=== PATIENT | male | born 1945 | race Caucasian/White ===

== ENCOUNTER 2018-09-04 12:41 | Inpatient (IN) | payer OTHER ==
[~2018-09-04] VITALS: Ht 185.4 cm; Wt 87.1 kg
[~2018-09-04 12:41] MED LIST: ALBU8HFA2 INH; ALBU90OI6 INH; ALLERCLEAR10 MG PO; ALPR.25 PO; AMLO5 PO; ASCO500 PO; ASPI325 PO; ASPI81CH PO; ASPI81EC PO; ATOR80 PO; Apriso0.375 GM PO; Artificial Tea1 EACH BOTHEYES; Aspir 8181 MG PO; BENZ10TG MC; BUTACE PO; CALCAVITD PO; CILO100; CILO100 PO; CLOP75 PO; CLOT10; COLE1 PO; COMBIVENT RESPIM4 GM INH; CYAN1000 PO; CYCL10 PO; DOC250 PO; DULO30 PO; DULO60 PO; EFFIENT10 MG PO; ENTRESTO 24 MG1 EACH PO; FENO160 PO; FINA5 PO; FISH1000 PO; FLUT.05NI; FURO20 PO; FURO40 PO; HIBICLENS120 ML EXT; HYDCOR2.5B TOP; HYDPAM25 PO; ISOMON20 PO; Ipratr-Albuterol3 ML INH; Isosorbide Mono30 MG PO; LAMO100 PO; LAMO25 PO; LEVFLO500 PO; LISI20 PO; LISI5 PO; LORA.5 PO; LORA1 PO; LORA10 PO; LORA10ER PO; LOSHYD PO; MAGGLU250 PO; MELA3 PO; MENTHOL; MESA250ER PO; METO50 PO; MOME220I IH; MOME220I INH; MULTI-DAY PLUS1 EAC1 PO; MULVITMIND PO; NEBI10 PO; NITR.4SL SL; Norvasc2.5 MG PO; OMEG1CAP30 PO; OMEP20ER PO; PENT400ER PO; PERIDEX15 ML MM; PIRO20 PO; Prilosec Otc20 MG PO; RANI150 PO; ROSU10TA PO; SALM50IP INH; SIME80CH PO; SINUS RINSE ST1 EACH NS; TERA5 PO; TIOT18 IH; TIOT18 INH; ZESTORETIC 20-121 EA PO; [UNRECOGNIZED DRUG - OTHER]
--- NOTE | 2018-09-04 15:40 | NUR ---
09/04/18 1539 Vianney Arnold PT. UPDATED THAT WAS FINISHING UP WITH HIS PREVIOUS PT. & WOULD BE IN TO SEE HIM IN A LITTLE BIT. PT. VERBALIZES BEING WARM ENOUGH. CALL LIGHT IS WITHIN REACH. PT. DIDN'T WANT HIS FRIEND CALL TO UPDATE HER.
--- NOTE | 2018-09-04 17:52 | NUR ---
09/04/18 1752 Vianney Arnold 1710 PT. WITH SCATTERED COARSE LUNGS SOUNDS WITH SCATTERED WHEEZES. CLEARS WITH COUGH. PT. STATES "SOB"SORT OF.171 PT. GIVEN ALBUTEROL NEBULIZER PER DR. SORIANO.
[2018-09-04 20:32] LABS: Creatine Kinase MB 7.8 ng/mL (0.0-3.6); Creatine Kinase MB Index 2.6 (0.0-4.0); Troponin I 0.026 ng/mL (0.000-0.040)
[2018-09-04 20:47] LABS: PCO2 Arterial 35.4 mmHg (35-45); PO2 Arterial 62.6 mmHg (80-100); pH Blood Arterial 7.45 (7.35-7.45)
[2018-09-04 22:03] LABS: BASOPHILS ABSOLUTE AUTO 0.04 K/mm3 (0.00-0.23); BASOPHILS PERCENT AUTO 1 % (0-2); EOSINOPHILS ABSOLUTE AUTO 0.06 K/mm3 (0.00-0.68); EOSINOPHILS PERCENT AUTO 1 % (0-6); Hematocrit 40.6 % (37.0-53.0); Hemoglobin 12.4 g/dL (13.5-17.5); IMMATURE GRAN ABSOLUTE AUTO 0.02 K/mm3 (0.00-0.10); IMMATURE GRAN PERCENT AUTO 0 % (0-1); LYMPHOCYTES ABSOLUTE AUTO 0.68 K/mm3 (0.84-5.20); LYMPHOCYTES PERCENT AUTO 9 % (21-46); MONOCYTES ABSOLUTE AUTO 0.44 K/mm3 (0.16-1.47); MONOCYTES PERCENT AUTO 6 % (4-13); Mean Corpuscular HGB 25.9 pg (26.0-34.0); Mean Corpuscular HGB Conc 30.5 g/dL (31.5-36.5); Mean Corpuscular Volume 85 fL (80-100); Mean Platelet Volume 8.9 fL (9.1-12.4); NEUTROPHILS ABSOLUTE AUTO 6.05 K/mm3 (1.96-9.15); NEUTROPHILS PERCENT AUTO 83 % (41-73); Platelet Count 189 K/mm3 (150-400); RDW Coefficient Variation 17.7 % (11.7-14.2); RDW Standard Deviation 54.4 fL (35.1-46.3); Red Blood Cell Count 4.79 M/mm3 (4.30-5.90); White Blood Cell Count 7.29 K/mm3 (4.00-11.30)
[2018-09-05 03:20] LABS: BASOPHILS ABSOLUTE AUTO 0.02 K/mm3 (0.00-0.23); BASOPHILS PERCENT AUTO 0 % (0-2); EOSINOPHILS ABSOLUTE AUTO 0.01 K/mm3 (0.00-0.68); EOSINOPHILS PERCENT AUTO 0 % (0-6); Hematocrit 37.5 % (37.0-53.0); Hemoglobin 11.6 g/dL (13.5-17.5); IMMATURE GRAN ABSOLUTE AUTO 0.04 K/mm3 (0.00-0.10); IMMATURE GRAN PERCENT AUTO 0 % (0-1); LYMPHOCYTES ABSOLUTE AUTO 0.56 K/mm3 (0.84-5.20); LYMPHOCYTES PERCENT AUTO 5 % (21-46); MONOCYTES ABSOLUTE AUTO 0.31 K/mm3 (0.16-1.47); MONOCYTES PERCENT AUTO 3 % (4-13); Mean Corpuscular HGB 25.5 pg (26.0-34.0); Mean Corpuscular HGB Conc 30.9 g/dL (31.5-36.5); Mean Platelet Volume 9.1 fL (9.1-12.4); NEUTROPHILS PERCENT AUTO 91 % (41-73); Platelet Count 177 K/mm3 (150-400); RDW Standard Deviation 53.3 fL (35.1-46.3); Red Blood Cell Count 4.55 M/mm3 (4.30-5.90); White Blood Cell Count 10.74 K/mm3 (4.00-11.30)
[2018-09-05 03:21] LABS: Mean Corpuscular Volume 82 fL (80-100)
[2018-09-05 03:39] LABS: Bilirubin, Total 1.2 mg/dL (0.1-1.0); Bun/Creatinine Ratio 12.9 (12.0-20.0); Calcium, Blood 8.2 mg/dL (8.5-10.1); Creatinine, Blood 1.32 mg/dL (0.60-1.20); Potassium, Blood 4.2 mmol/L (3.5-5.5)
--- NOTE | 2018-09-05 07:21 | NUR ---
ASSUMED CARE REPORT FROM CHRISTA BAEZA. PATIENT ASSISTED TO STAND TO VOID IN URINAL. 400 CC DARK YELLOW URINE. LUNG SOUNDS DIMINISHED. 2 L NC
--- NOTE | 2018-09-05 07:27 | NUR ---
1914: ADM TO ICU [age] YO MALE RESTLESS, TACHYPNIC. POSITIONED HIGH RIVERA'S, ABD DISTENDED, NOT FIRM. NSR, SPO2 88% ON 2L, INCREASED TO 4L NC. MAYO GLEZ AT BEDSIDE. INTERMIT PAROXYSMS TWISTING, SQUEEZING SHOULDER BLADES TOGETHER, C/O SEVERE PINS/NEEDLES MID THORACIC BACK, MOD INTERMIT ABD PAIN, R JAW PAIN. 12 LEAD EKG, PCXR, LACTIC ACID DONE. CT ABD COMPLETED BEFORE ADMIT. 1MG ATIVAN GIVEN IV WHEN ORDER OBTAINED, RESTLESSNESS, TACHYPNEA MOSTLY RELIEVED. 2129: PT ABLE TO CONVERSE, ADMISS COMPLETED. R HAND IV LEAKING, D/C. #20 R AC, FENTANYL 25 DANILO GIVEN, REMAINING PAIN SYMPT LARGELY RELIEVED. PRODUCTIVE COUGH, PINK TINGED, SPUTUM SPEC OBTAINED. ABX GIVEN. AGAIN C/O R JAW, MID BACK PAIN, BOTH INCREASED WHEN AREAS PALPATED, SECOND FENTANYL 25 DANILO GIVEN W/ STATED ADEQUATE IMPROVEMENT. 1MG ATIVAN FOR SLEEP. 199: SLEEPING AT INTERVALS, HOB FLAT, REPOSIT SELF SIDE TO SIDE FORE COMFORT.
--- NOTE | 2018-09-05 07:48 | NUR ---
0600: RESTING/ SLEEPING INTERVALS, ANXIETY REMAINS MARKEDLY REDUCED. RX FENTANYL 25 DANILO FOR C/O BACK PAIN, RETURNED TO SLEEP. ACTIVITY NICOLA MARKEDLY IMPROVED, SPO2 > 92%, O2 TITRATED TO 2L N/C.
--- NOTE | 2018-09-05 09:21 | NUR ---
CALLED DR. FUNES RE NPO STATUS. ORDER TO ADVANCE TO FULL LIQUID DIET.
--- NOTE | 2018-09-05 11:03 | NUR ---
ASSISTED PATIENT TO BSC. LIQUID STOOL WITH SOME BRIGHT RED BLOOD
--- NOTE | 2018-09-05 13:33 | NUR ---
MD VISIT DR. FUNES IN. ADVANCE DIET TOLERATED
--- NOTE | 2018-09-05 17:28 | NUR ---
ASSISTED PATIENT TO RECLINER FOR DINNER. INCREASED SHORTNESS OF BREATH. LEFT LUNGS DIMINSHED. CALLED DR. HUBER AND RECEIVED ORDER FOR LASIX 20 MG IV
--- NOTE | 2018-09-05 18:44 | NUR ---
PATIENT VOIDED 400 CC URINE AFTER LASIX GIVEN. IN CHAIR FOR DINNER. WILL BE MOVING TO ROOM 361 AFTER REPORT.
--- NOTE | 2018-09-05 19:23 | NUR ---
REPORT GIVEN TO CHRISTA GIL. PATIENT WILL MOVE TO 361
--- NOTE | 2018-09-06 06:40 | NUR ---
NOC SHIFT SUMMARY PT HAS BEEN PLEASANT AND COOPERATIVE WITH CARE THIS NIGHT, WAS TRANSFERED FROM ICU TO THIS FLOOR. WAS TREATED FOR ONGOING PAIN WITH FENTYNAL X1, ALSO TREATED FOR ANXIETY WITH ATIVAN X1. FOLLOWING MED ADMINISTRATION AND EVENING MED PASS PT SOON WENT TO SLEEP AND HAS SLEPT RESTFULY THROUGH THE NIGHT. CURRENTLY APPEARS IN NO ACUTE DISTRESS. VS HAVE BEEN STABLE. WILL CONTINUE TO MONITOR
--- NOTE | 2018-09-06 19:43 | NUR ---
SHIFT SUMMARY. PT DESATURATED ON RA, WAS NOT ABLE TO TITRATE OFF O2. PT HAD ONE EPISODE OF PAIN THAT WAS MANAGED WELL WITH ONE DOSE OF FENTANYL THIS AM. NO NEW CHANGES.
--- NOTE | 2018-09-07 04:23 | NUR ---
NOC SHIFT SUMMARY PT HAS BEEN PLEASANT AND COOPERATIVE WITH CARE THIS NIGHT. WAS TREATED ONCE FOR PAIN AND ONCE FOR ANXIETY. WAS ABLE TO SLEEP AND HAS SLEPT FOR MOST OF THE NIGHT. LAST VS AT 0417 WERE STABLE AND PT APPEARS IN NO ACUTE DISTRESS. CURRENTLY RESTING PEACEFULLY. WILL CONTINUE TO MONITOR.
[2018-09-07 05:09] LABS: BASOPHILS ABSOLUTE AUTO 0.02 K/mm3 (0.00-0.23); BASOPHILS PERCENT AUTO 0 % (0-2); EOSINOPHILS ABSOLUTE AUTO 0.03 K/mm3 (0.00-0.68); EOSINOPHILS PERCENT AUTO 0 % (0-6); Hematocrit 39.1 % (37.0-53.0); Hemoglobin 11.6 g/dL (13.5-17.5); IMMATURE GRAN ABSOLUTE AUTO 0.03 K/mm3 (0.00-0.10); IMMATURE GRAN PERCENT AUTO 0 % (0-1); LYMPHOCYTES ABSOLUTE AUTO 1.37 K/mm3 (0.84-5.20); LYMPHOCYTES PERCENT AUTO 17 % (21-46); MONOCYTES ABSOLUTE AUTO 0.57 K/mm3 (0.16-1.47); MONOCYTES PERCENT AUTO 7 % (4-13); Mean Corpuscular HGB 25.4 pg (26.0-34.0); Mean Corpuscular HGB Conc 29.7 g/dL (31.5-36.5); NEUTROPHILS ABSOLUTE AUTO 6.18 K/mm3 (1.96-9.15); NEUTROPHILS PERCENT AUTO 75 % (41-73); Platelet Count 198 K/mm3 (150-400); RDW Coefficient Variation 18.6 % (11.7-14.2); RDW Standard Deviation 57.3 fL (35.1-46.3); Red Blood Cell Count 4.57 M/mm3 (4.30-5.90)
[2018-09-07 05:22] LABS: Mean Corpuscular Volume 86 fL (80-100)
[2018-09-07 05:34] LABS: Bun/Creatinine Ratio 21.4 (12.0-20.0); Calcium, Blood 8.6 mg/dL (8.5-10.1); Creatinine, Blood 1.31 mg/dL (0.60-1.20)
--- NOTE | 2018-09-07 13:19 | NUR ---
Per admit trigger, I met with Mr. Gonzalez to discuss an Advacned Directive for him. He tells me he already [facility]. Asked RN to request [facility] fax this information.
--- NOTE | 2018-09-07 16:09 | NUR ---
SHIFT SUMMARY NO ACUTE CHANGES. PATIENT READY FOR DISCHARGE BUT CANNOT GET HOME DUE TO SNOW STORM. HOME 02 EVAL RECOMMENDS 4 L VIA HIFLOW CONTINUOUS OXYGEN. PATIENT REPORTS HE IS FEELING MUCH BETTER. PRN BREATHING TREATMENTS. CALL LIGHT IN REACH, WILL CONTINUE TO MONITOR.
--- NOTE | 2018-09-08 03:23 | NUR ---
SHIFT SUMMARY PT MEDICATED FOR C/O PAIN DURING SHIFT REPORT, THEN WENT TO SLEEP. ADMITTED FOR CP AFTER COLONOSCOPY. FOUND TO HAVE PNM. HOME O2 EVAL DONE. PT ON 4L HIGH FLOW NC. USING URINAL IN BED. NO C/O. PLEASANT AND CO-OP WITH CARE. CALL LT IN REACH.
--- NOTE | 2018-09-08 15:07 | NUR ---
SHIFT SUMMARY NO ACUTE CHANGES. PATIENT INDEPENDENT IN ROOM. PATIENT READY FOR DISCHARGE BUT HIS HOME DOES NOT HAVE POWER. POWER NEEDED FOR PATIENT'S OXYGEN CONCENTRATOR. HOME 02 EVAL DONE ON 09/07 RECOMMENDS 4L ON HIFLOW NC AT ALL TIMES. CALL LIGHT IN REACH, WILL CONTINUE TO MONITOR.
--- NOTE | 2018-09-09 06:03 | NUR ---
SHIFT SUMMARY NO ACUTE CHANGES TO PRESENT THIS SHIFT. PT CONTINUES TO IMPROVE AND JUST WAITING FOR POWER TO COME ON AT HIS HOUSE SO HE CAN BE DISCHARGED. REQUESTED ROBAXIN AND ATIVAN FOR SLEEP. GIVEN PER EMAR; HOWEVER, PT BECOME CONFUSED AND FORGETFUL AFTER ATIVAN, WANDERING OUT IN BIRD. ASSISTED BACK TO WHERE HE HAS RESTED WELL THE REMAINING SHIFT. INDEPENDANT IN . CALL LT IN REACH.
--- NOTE | 2018-09-09 16:32 | NUR ---
SHIFT SUMMARY NO CHANGES IN ASSESSMENT AT THIS TIME. VSS. PT IND IN ROOM. PT STATES NO NEEDS AT THIS TIME. PT WILL HOPEFULLY DC TOMORROW. WEATHER HAS CAUSED PROBLEMS IN DC HOME. WILL CONTINUE TO MONITOR UNTIL TURNOVER IS COMPLETE.
--- NOTE | 2018-09-10 04:57 | NUR ---
SHIFT SUMMARY NO ACUTE CHANGES TO PRESENT THIS SHIFT. PT RESTED QUIETLY IN BED. REPORTED CONTINUED IMPROVEMENT. ABLE TO AMBULATE IN HALLS DURING THE DAY. STILL WAITING FOR POWER TO COME ON AT HIS HOUSE, SO HE CAN GO HOME. USES URINAL AT BS AND ABLE TO GO INTO [facility]. CALL LT IN REACH.
--- NOTE | 2018-09-10 16:51 | NUR ---
SHIFT SUMMARY NO CHANGES IN ASSESSMENT AT THIS TIME. PT HOME STILL HAS NO POWER. DC HELD FOR THIS REASON. VSS. PT WORKED WITH PHYSICAL THERAPY THIS SHIFT. PT ENCOURAGED TO WALK WITH ASSISTANCE 3X A DAY AND TO GET UP IN CHAIR FOR MEALS. WILL CONTINUE TO MONITOR UNTIL TURNOVER IS COMPLETE.
--- NOTE | 2018-09-10 21:57 | NUR ---
ASSUMED CARE OF PT D/T PRIOR NURSE HAS NO COMPUTER ACCESS.
--- NOTE | 2018-09-11 03:35 | NUR ---
SHIFT SUMMARY: PT PLEASANT AND COOPERATIVE WITH CARE. AMBULATED IN BIRD USING FWW ONCE DURING SHIFT WITH FREQUENT PERIODS OF REST D/T SOB. PT RECOVERED FAIRLY WELL. NO COMPLAINTS OF PAIN OR NAUSEA. 0.5MG PO ATIVAN GIVEN FOR ANXIETY AND TO HELP PT REST. NO ACUTE CHANGES. WILL CONTINUE TO MONITOR AND PROVIDE CARE UNTIL SHIFT REPORT.
[2018-09-11] MEDS ORDERED: AMOCLA500 PO (14:38)
[2018-09-11] MEDS ORDERED: ONDA4ODT MM (14:39)
[2018-09-11] MEDS ORDERED: METCAR500 PO (14:39)
[2018-09-11] MEDS ORDERED: CULTURELLE1 EACH PO (14:39)
[2018-09-11] MEDS ORDERED: ACET325 PO (14:40)
[2018-09-11] MEDS ORDERED: AKWA Tears15 ML BOTHEYES (15:20)
[2018-09-11] MEDS ORDERED: PRED10 (15:21)
--- NOTE | 2018-09-11 15:35 | NUR ---
PT EXPLAINED THAT IF HE DOES NOT FEEL SAFE GOING HOME HE CAN CHECK HIMSELF INTO THE [place] THE [place]. TRANSPORT WAS ARRANGED TO PICK HIM UP AND TAKE HIM TO THE [facility] FOR PRESCRIPTIONS [facility] FOR PRESCRIPTIONS. PT REFUSED TO GO WITH THE TRANSPORT STATING "HE IS NOT READY & NEEDS MORE TIME" [facility] UNABLE TO WAIT ON PT AND HAD TO LEAVE. AT THIS POINT THE PT SAID HE WOULD GO, HOWEVER [facility] TRANSPORT WAS ALREADY GONE. PT STATED "THIS IS NOT RIGHT" & SAID HE WOULD WALK HIMSELF OUT. PT THEN PROCEEDED TO WALK WITH HIS CANE INTO THE LOBBY. PT REFUSED TO SIGN HIS DC PAPERWORK, BUT TOOK THE PACKED WITH HIM. PT THEN SAT IN THE 3RD FLOOR LOBBY. DC BRUSH OR BROOM CUTTERFAUSTINO NOTIFIED. NURSING CANE LOADER ALSO AWARE OF THE SITUATION.
--- NOTE | 2018-09-11 15:41 | NUR ---
PT DISCHARGED PT DISCHARGED IN STABLE CONDITION. [facility] ABLE TO COME BACK & TAKE PT TO [facility].
== END 2018-09-11 15:45 | disposition home or self-care (01) | DRG 193 ==
LOC: ORSCSDS 12:41 → ICUW 19:21 → ORSCSDS 19:24 → ICUW 19:24 → MEDS 09-05 19:40
PROVIDERS: Internal Medicine; Internal Medicine Gastroenterology; ADMIT Internal Medicine
PROC: 0DBL8ZX Excision of Transverse Colon, Via Natural or Artificial Opening Endoscopic, Diagnostic (ICD-10-PCS; 2018-09-04)
PROC: 0DBN8ZX Excision of Sigmoid Colon, Via Natural or Artificial Opening Endoscopic, Diagnostic (ICD-10-PCS; 2018-09-04)
PROC: 0DBP8ZX Excision of Rectum, Via Natural or Artificial Opening Endoscopic, Diagnostic (ICD-10-PCS; 2018-09-04)
PROC: 0DBM8ZX Excision of Descending Colon, Via Natural or Artificial Opening Endoscopic, Diagnostic (ICD-10-PCS; 2018-09-04)
PROC: 0DBK8ZX Excision of Ascending Colon, Via Natural or Artificial Opening Endoscopic, Diagnostic (ICD-10-PCS; principal; 2018-09-04 14:15)
DX: J18.1 Lobar pneumonia, unspecified organism (principal); J96.01 Acute respiratory failure with hypoxia; K51.90 Ulcerative colitis, unspecified, without complications; J44.1 Chronic obstructive pulmonary disease with (acute) exacerbation; J44.0 Chronic obstructive pulmonary disease with (acute) lower respiratory infection; I50.42 Chronic combined systolic (congestive) and diastolic (congestive) heart failure; Z86.010 Personal history of colon polyps; D63.1 Anemia in chronic kidney disease; N18.3 Chronic kidney disease, stage 3 (moderate); I25.10 Atherosclerotic heart disease of native coronary artery without angina pectoris; I25.5 Ischemic cardiomyopathy; Z95.1 Presence of aortocoronary bypass graft; Z95.5 Presence of coronary angioplasty implant and graft; Z87.891 Personal history of nicotine dependence; F41.9 Anxiety disorder, unspecified; K63.5 Polyp of colon; K64.8 Other hemorrhoids; K57.90 Diverticulosis of intestine, part unspecified, without perforation or abscess without bleeding
CPT/HCPCS: 36415; 36600; 71045; 74176; 80048; 80053; 82550; 82553; 82803; 83605; 84145; 84484; 85025; 87070; 87205; 88305; 93005; 93010; 94640; 94760; 94761; 97110; 97162; 97530; J0696; J1940; J1956; J2060; J2920; J3010; J7040; J7120

== ENCOUNTER 2020-05-27 03:48 | Emergency (ER) | payer OTHER, MEDICARE ==
[~2020-05-27] VITALS: Ht 185.4 cm; Wt 78.0 kg
[~2020-05-27 03:48] MED LIST changes: +ACET325 PO; +AKWA Tears15 ML BOTHEYES; +AMOCLA500 PO; +CULTURELLE1 EACH PO; +Daily Multiple1 EACH PO; -ENTRESTO 24 MG1 EACH PO; +ENTRESTO 49 MG1 EACH PO; +KRISTALOSE20 GM PO; +LASIX40 MG PO; -LORA10 PO; +MESALAMINE E0.375 GM PO; +METCAR500 PO; +MIRALAX17 GM PO; -MULTI-DAY PLUS1 EAC1 PO; +NITRO-DUR1 EAC1 TOP; +ONDA4ODT MM; +Oyster Shell C500 MG PO; +PRED10; +Triamcinolone A15 G2 EXT; +Vitamin D2000 UNIT PO; +ZOSTAVAX V19400 UNIT SQ; +Zantac150 MG PO
[2020-05-27] MEDS ORDERED: CARB10OTL BOTHEARS (04:59)
[2020-05-27] MEDS ORDERED: TUMS500 MG PO (04:59)
[2020-05-27] MEDS ORDERED: Vitamin D2000 UNIT PO (05:00)
[2020-05-27] MEDS ORDERED: Plavix75 MG PO (05:00)
[2020-05-27] MEDS ORDERED: DULO60 PO (05:01)
[2020-05-27] MEDS ORDERED: ARTIFICIAL TEA1 EAC1 BOTHEYES (05:01)
[2020-05-27] MEDS ORDERED: FAMO20 PO (05:02)
[2020-05-27] MEDS ORDERED: LAMO100 PO (05:02)
[2020-05-27] MEDS ORDERED: MESA250ER PO (05:04)
[2020-05-27] MEDS ORDERED: MULTIVITAMINS1 EAC3 PO (05:05)
[2020-05-27] MEDS ORDERED: NEBI10 PO (05:05)
[2020-05-27] MEDS ORDERED: NITR.4SL SL (05:06)
== END 2020-05-27 06:20 | disposition home or self-care (01) ==
LOC: ER 03:48
DX: M54.5 Low back pain (principal); I25.2 Old myocardial infarction; J44.9 Chronic obstructive pulmonary disease, unspecified; F43.10 Post-traumatic stress disorder, unspecified; Z95.1 Presence of aortocoronary bypass graft; Z95.5 Presence of coronary angioplasty implant and graft; Z87.891 Personal history of nicotine dependence; Z79.02 Long term (current) use of antithrombotics/antiplatelets; Z79.899 Other long term (current) drug therapy; Z88.8 Allergy status to other drugs, medicaments and biological substances; Z88.5 Allergy status to narcotic agent
CPT/HCPCS: 72100; 99283-25; A9270

== ENCOUNTER 2020-06-08 20:39 | Inpatient (IN) | payer OTHER, MEDICARE ==
[~2020-06-08] VITALS: Ht 188 cm; Wt 78.9 kg
[~2020-06-08 20:39] MED LIST changes: +ARTIFICIAL TEA1 EAC1 BOTHEYES; +CARB10OTL BOTHEARS; +FAMO20 PO; +MULVITA PO; +Plavix75 MG PO; +TUMS500 MG PO
[2020-06-08 21:14] LABS: BASOPHILS ABSOLUTE AUTO 0.12 K/mm3 (0.00-0.23); BASOPHILS PERCENT AUTO 1 % (0-2); EOSINOPHILS ABSOLUTE AUTO 0.17 K/mm3 (0.00-0.68); EOSINOPHILS PERCENT AUTO 2 % (0-6); Hemoglobin 12.1 g/dL (13.5-17.5); IMMATURE GRAN ABSOLUTE AUTO 0.04 K/mm3 (0.00-0.10); IMMATURE GRAN PERCENT AUTO 0 % (0-1); LYMPHOCYTES ABSOLUTE AUTO 2.04 K/mm3 (0.84-5.20); LYMPHOCYTES PERCENT AUTO 21 % (21-46); MONOCYTES PERCENT AUTO 8 % (4-13); Mean Corpuscular HGB 22.3 pg (26.0-34.0); Mean Corpuscular HGB Conc 28.1 g/dL (31.5-36.5); Mean Corpuscular Volume 79 fL (80-100); Mean Platelet Volume 9.4 fL (9.1-12.4); NEUTROPHILS ABSOLUTE AUTO 6.68 K/mm3 (1.96-9.15); NEUTROPHILS PERCENT AUTO 68 % (41-73); Platelet Count 316 K/mm3 (150-400); RDW Coefficient Variation 16.6 % (11.7-14.2); RDW Standard Deviation 47.2 fL (35.1-46.3); Red Blood Cell Count 5.42 M/mm3 (4.30-5.90); White Blood Cell Count 9.85 K/mm3 (4.00-11.30)
[2020-06-08 21:28] LABS: Albumin, Blood 3.4 g/dL (3.4-5.0); Bilirubin, Total 1.6 mg/dL (0.1-1.0); Bun/Creatinine Ratio 12.4 (12.0-20.0); Calcium, Blood 8.8 mg/dL (8.5-10.1); Creatinine, Blood 1.77 mg/dL (0.60-1.20); Globulin, Blood 3.4 g/dL (2.2-4.0); Potassium, Blood 4.8 mmol/L (3.5-5.5); Prolactin 5.3 ng/mL (2.5-17.4); Total Protein, Blood 6.8 g/dL (6.4-8.2); Troponin I 0.061 ng/mL (0.000-0.040)
[2020-06-08 21:29] LABS: International Normalized Ratio 1.38; Prothrombin Time Results 14.5 Sec (9.7-11.5)
[2020-06-08 21:39] LABS: Source, Urine Catheter
[2020-06-08 21:43] LABS: Blood, Urine 1+ (Neg); Glucose Qualitative, Urine Neg (Neg); Ketones, Urine 2+ (Neg); Leukocyte Esterase, Urine 1+ (Neg); Nitrite, Urine Pos (Neg); Protein, Urine 3+ (Neg); Specific Gravity, Urine 1.025 (1.003-1.022); Urobilinogen, Urine 2+ (Normal)
[2020-06-08 21:45] LABS: Appearance, Urine Hazy (Clear); Bilirubin, Urine 2+ (Neg); Color, Urine Amber (P-Yellow)
[2020-06-08 21:54] LABS: U Amphetamine Screen Not Detected; U Barbituate Screen Not Detected; U Benzodiazapine Screen Not Detected; U Buprenorphine Screen Not Detected; U Cannabinoids Screen Not Detected; U Cocaine Screen Not Detected; U Methadone Screen Not Detected; U Methamphetamine Screen DETECTED; U Opiates Screen Not Detected; U Oxycodone Screen Not Detected; U Phencyclidine Screen Not Detected; U Propoxyphene Screen Not Detected
[2020-06-08 21:57] LABS: Amorphous Heavy (0-Heavy); Bacteria Few /hpf; Red Blood Cells, Urine Not Seen /hpf (0-2); Squamous Epithelial Cells Not Seen /hpf (Few); White Blood Cells, Urine Rare /hpf (0-5)
[2020-06-08 22:11] LABS: Creatine Kinase MB 21.5 ng/mL (0.0-3.6); Creatine Kinase MB Index 2.9 (0.0-4.0)
--- NOTE | 2020-06-09 01:00 | NUR ---
PT ARRIVED FROM ER VIA STRETCHER; PT CONFUSED; ABLE TO STATE BIRTHDATE, DOES NOT KNOW WHAT MONTH IT IS AND STATES [facility]; MAI IN PLACE, PATENT & DRAINING; VSS; DENIES CHEST PAIN; ORIENTED TO ROOM AND CALL LIGHT; BED IN LOWEST POSITION; BED ALARM ON FOR SAFETY;
[2020-06-09 03:05] LABS: Adenovirus Not Detected (NOT DETECT); Bordetella pertussis Not Detected (NOT DETECT); Chlamydophila pneumoniae Not Detected (NOT DETECT); Coronavirus 229E Not Detected (NOT DETECT); Coronavirus HKU1 Not Detected (NOT DETECT); Coronavirus NL63 Not Detected (NOT DETECT); Coronavirus OC43 Not Detected (NOT DETECT); Human Metapneumovirus Not Detected (NOT DETECT); Human Rhinovirus/Enterovirus Not Detected (NOT DETECT); Influenza A/2009-H1 Not Detected (NOT DETECT); Influenza A/H1 Not Detected (NOT DETECT); Influenza A/H3 Not Detected (NOT DETECT); Influenza B Not Detected (NOT DETECT); Mycoplasma pneumoniae Not Detected (NOT DETECT); Parainfluenza Virus 1 Not Detected (NOT DETECT); Parainfluenza Virus 2 Not Detected (NOT DETECT); Parainfluenza Virus 3 Not Detected (NOT DETECT); Parainfluenza Virus 4 Not Detected (NOT DETECT); Respiratory Syncytial Virus Not Detected (NOT DETECT); SARS-Cov-2 (COVID-19), BioFire Not Detected (NOT DETECT)
--- NOTE | 2020-06-09 03:12 | NUR ---
UPDATE PT AGGITATED AND PULLED MAI APART AND IV; IN BATHROOM REFUSING TO COME OUT; ADMINISTRATIVE SALES ASSISTANT IN ROOM AND SECURITY; DR. ROWE NOTIFIED; NEW ORDERS GIVEN FOR OSORIO AND HOLD; REFER TO EMAR
--- NOTE | 2020-06-09 03:54 | NUR ---
UPDATE TO SEE PT; INITIATED 2MD HOLD; 3MG HALDOL IV ADMINISTERED; PT EDUCATED ON MD HOLD AND CIVIL RIGHTS READ TO PT; HE REFUSED TO SIGN PAPERS, WITNESSED BY SECURITY AND CHRISTA GARCIA; PT MOVED TO PCU ROOM 8, CAMERA ON AND CONFIRMED W/ CENTRAL MONITORING; BALLOON FROM MAI REMOVED BY JOSERN; PT REFUSING ALL CARE AND INTERVENTIONS; CALL LIGHT IN REACH; BED IN LOWEST POSITION; WILL CONTINUE TO MONITOR CLOSELY.
[2020-06-09 05:05] LABS: BASOPHILS ABSOLUTE AUTO 0.04 K/mm3 (0.00-0.23); BASOPHILS PERCENT AUTO 1 % (0-2); EOSINOPHILS PERCENT AUTO 0 % (0-6); Hematocrit 38.5 % (37.0-53.0); Hemoglobin 11.3 g/dL (13.5-17.5); IMMATURE GRAN ABSOLUTE AUTO 0.03 K/mm3 (0.00-0.10); IMMATURE GRAN PERCENT AUTO 1 % (0-1); LYMPHOCYTES ABSOLUTE AUTO 1.17 K/mm3 (0.84-5.20); LYMPHOCYTES PERCENT AUTO 18 % (21-46); MONOCYTES ABSOLUTE AUTO 0.57 K/mm3 (0.16-1.47); MONOCYTES PERCENT AUTO 9 % (4-13); Mean Corpuscular HGB Conc 29.4 g/dL (31.5-36.5); Mean Corpuscular Volume 78 fL (80-100); Mean Platelet Volume 8.9 fL (9.1-12.4); NEUTROPHILS ABSOLUTE AUTO 4.85 K/mm3 (1.96-9.15); NEUTROPHILS PERCENT AUTO 73 % (41-73); Platelet Count 215 K/mm3 (150-400); RDW Coefficient Variation 16.6 % (11.7-14.2); RDW Standard Deviation 46.6 fL (35.1-46.3); Red Blood Cell Count 4.91 M/mm3 (4.30-5.90); White Blood Cell Count 6.66 K/mm3 (4.00-11.30)
[2020-06-09 05:49] LABS: Albumin, Blood 3.1 g/dL (3.4-5.0); Bilirubin, Total 1.5 mg/dL (0.1-1.0); Bun/Creatinine Ratio 14.1 (12.0-20.0); Calcium, Blood 8.5 mg/dL (8.5-10.1); Creatinine, Blood 1.92 mg/dL (0.60-1.20); Globulin, Blood 3.2 g/dL (2.2-4.0); Potassium, Blood 4.4 mmol/L (3.5-5.5); Total Protein, Blood 6.3 g/dL (6.4-8.2)
[2020-06-09 06:03] LABS: Troponin I 4.89 ng/mL (0.000-0.040)
[2020-06-09 06:18] LABS: Creatine Kinase MB 36.8 ng/mL (0.0-3.6); Creatine Kinase MB Index 2.2 (0.0-4.0)
--- NOTE | 2020-06-09 06:24 | NUR ---
SHIFT SUMMARY PT ALERT; REFUSING SOME CARE; REFUSED VITALS; ALLOWED LAB TO DRAW AM LABS; WENT BY WHEELCHAIR TO CT; CAMERA ON; TELE IN PLACE, NSR W/ HR 60'S; PT CURRENTLY RESTING QUIETLY IN BED; CALL LIGHT IN REACH; BED IN LOWEST POSITION; WILL CONTINUE TO MONITOR CLOSELY UNTIL HAND OFF TO DAY SHIFT RN.
--- NOTE | 2020-06-09 08:32 | NUR ---
NOTED IV SITE ON RIGHT FOREARM LOOKS WNL; HOWEVER, THERE WAS TIGHT COBAN PROXIMAL TO THE AREA WITH SWELLING PROXIMAL TO THAT.
--- NOTE | 2020-06-09 10:58 | NUR ---
ASSUMED CARE DURING MORNING REPORT FROM NOC RN PT WAS IN THE BATHROOM DURING SHIFT CHANGE, RETURNED TO BED AND AGREED TO LET RN COMPLETE VS. IV IN RIGHT FOREARM HAD SOME SWELLING ABOVE THE SITE, THERE WAS ALSO TIGHT COBAN FROM RECENT LAB DRAWS. THE COBAN WAS REMOVED AND WE ALLOWED TIME FOR THE SWELLING TO SETTLE. WHEN CHECKING THE PATENCY OF THE IV, IT WAS INFILTRATED. IV WAS REMOVED, 3 ATTEMPTS WITH ULTRASOUND WERE ATTEMPTED TO REPLACE THE IV FROM MULTIPLE RN'S KO, AND GL. GBL WAS ABLE TO GET AN IV STARTED IN THE RIGHT FOREARM HIGHER THAN THE LAST IV SITE, PT TOLERATED WELL. PT COOPERATED WITH CARE, ALLOWING ASSESSMENTS AND MEDICATIONS BUT REFUSED WORKING WITH PT AND OT THIS MORNING. VS STABLE, NSR, CLEAR LUNG SOUNDS, PT RESTING AT THIS TIME
[2020-06-09 14:06] LABS: Troponin I 5.51 ng/mL (0.000-0.040)
[2020-06-09 14:35] LABS: Creatine Kinase MB 36.4 ng/mL (0.0-3.6); Creatine Kinase MB Index 1.7 (0.0-4.0)
--- NOTE | 2020-06-09 14:38 | NUR ---
Echocardiogram using 0.50ml of Definity contrast performed.
[2020-06-09 16:19] LABS: International Normalized Ratio 1.43
--- NOTE | 2020-06-09 17:58 | NUR ---
SHIFT SUMMARY PT RESTED MOST OF THE DAY. HE WAS COOPERATIVE WITH CARE, ALLOWING THE IV TO BE REPLACED WHEN HIS WAS INFILTRATED. HE WORKED A LITTLE WITH PHYSICAL THERAPY, AGREED TO THE ECHO. TROP HAS TRENDED UPWARD, SOME LATERAL ISCHEMIA DETECTED ON THE EKG BUT NO ST ELEVATION, PT REPORTED SOME MILD CHEST PAIN FOLLOWING THE EKG BUT OVERALL HAS BEEN SORE AND TIRED. PRN TYLENOL WAS ORDERED FOR HIS SORENESS. HEPARIN DRIP AND 0.45% NS ORDERED FOR THE INCREASED TROPONIN, HEP RUNNING @ 13 U/KG/HR. PT HAS A LARGE HEMATOMA ON THE RIGHT ELBOW ALONG WITH SCATTERED BRUISING FROM HIS FALL AT HOME. PT ALSO HAS REPORTED SOME SORENESS IN HIS THROAT, POSSIBLY FROM YELLING WHILE DOWN AT HOME. PT RESTING IN HIS ROOM AT THIS TIME
--- NOTE | 2020-06-09 19:03 | NUR ---
Went into room to answer beeping IV machine. While verifying IV site WNL, the pt was grimacing, clenching his fists, and said that he was having chest pain, holding his hand over his left chest. Cannot rate his pain level numerically due to his altered mental status, which has been unchanged throughout the shift today. DR. Mack was called, and new orders received. 12 lead EKG was done, without noticable changes from previous EKG today. Heparin gtt continues to infuse. Pt was given 2 doses of sublingual NTG which gave him some relief. call to cardiology answering service to verify the receipt by the poiser of the consultation request. It was given to Dr. Meadows, who had told them that he was nearby PCU. Pt's blood pressure is stable, and his SPo2 is 93-95% on room air.
--- NOTE | 2020-06-09 19:10 | NUR ---
Spoke with Dr. Meadows, and he is heading in to see the patient now.
--- NOTE | 2020-06-09 22:00 | NUR ---
UPDATE VERIFIED THAT CAMERA WAS ON IN ROOM.
[2020-06-10 01:10] LABS: BASOPHILS ABSOLUTE AUTO 0.09 K/mm3 (0.00-0.23); BASOPHILS PERCENT AUTO 1 % (0-2); EOSINOPHILS PERCENT AUTO 1 % (0-6); Hematocrit 37.1 % (37.0-53.0); IMMATURE GRAN ABSOLUTE AUTO 0.02 K/mm3 (0.00-0.10); IMMATURE GRAN PERCENT AUTO 0 % (0-1); LYMPHOCYTES ABSOLUTE AUTO 2.31 K/mm3 (0.84-5.20); LYMPHOCYTES PERCENT AUTO 28 % (21-46); MONOCYTES ABSOLUTE AUTO 0.89 K/mm3 (0.16-1.47); MONOCYTES PERCENT AUTO 11 % (4-13); Mean Corpuscular HGB 22.8 pg (26.0-34.0); Mean Corpuscular HGB Conc 29.6 g/dL (31.5-36.5); Mean Corpuscular Volume 77 fL (80-100); Mean Platelet Volume 9.5 fL (9.1-12.4); NEUTROPHILS ABSOLUTE AUTO 4.94 K/mm3 (1.96-9.15); NEUTROPHILS PERCENT AUTO 59 % (41-73); Platelet Count 222 K/mm3 (150-400); RDW Coefficient Variation 16.7 % (11.7-14.2); RDW Standard Deviation 45.8 fL (35.1-46.3); Red Blood Cell Count 4.83 M/mm3 (4.30-5.90); White Blood Cell Count 8.35 K/mm3 (4.00-11.30)
[2020-06-10 01:42] LABS: Albumin, Blood 2.9 g/dL (3.4-5.0); Albumin/Globulin Ratio 1.1 (0.8-1.8); Bilirubin, Total 1.5 mg/dL (0.1-1.0); Bun/Creatinine Ratio 18.9 (12.0-20.0); Calcium, Blood 8.1 mg/dL (8.5-10.1); Creatine Kinase MB 41.1 ng/mL (0.0-3.6); Creatinine, Blood 1.48 mg/dL (0.60-1.20); Globulin, Blood 2.7 g/dL (2.2-4.0); Potassium, Blood 3.9 mmol/L (3.5-5.5); Total Protein, Blood 5.6 g/dL (6.4-8.2)
[2020-06-10 01:44] LABS: Creatine Kinase MB Index 1.8 (0.0-4.0); Troponin I 4.17 ng/mL (0.000-0.040)
--- NOTE | 2020-06-10 02:15 | NUR ---
CHEST PAIN PATIENT'S CHEST PAIN AT SHIFT CHANGE HAD RESOLVED, HOWEVER, PATIENT JUST STARTED COMPLAINING OF SEVERE CHEST PAIN AGAIN. PATIENT BECAME VERY ANXIOUS AND STARTED CLUTCHING HIS CHEST STATING "I HURT!" PATIENT MEDICATED PER EMAR. AFTER THREE SQ NITRO PATIENT RELAXED AND STATED THAT HIS CHEST ONLY HURT WHEN HE PRESSED ON IT. 2L O2 PROVIDED FOR COMFORT. PATIENT SETTLED BACK TO BED AND APPEARES TO BE RESTING.
--- NOTE | 2020-06-10 02:44 | NUR ---
UPDATE DR ROWE NOTIFIED OF BNP RESULTS. ORDERS RECIEVED.
--- NOTE | 2020-06-10 07:53 | NUR ---
SHIFT SUMMARY PATIENT HAD NO FURTHER COMPLAINTS OF CHEST PAIN/DISCOMFORT THROUGHOUT THE NIGHT. HOWEVER, PATIENT DID HAVE GENERAL PAIN AND RIB PAIN. PATIENT REPORTED THAT THE RIB PAIN WAS NOT THE SAME PAIN HE HAD EARLIER IN HIS CHEST. PATIENT APPEARS TO BE ABLE TO CARRY ON A BETTER CONVERSATION WITH STAFF THIS MORNING THAN LAST NIGHT. PATIENT APPEARED TO SLEEP WELL ON AND OFF THROUGHOUT THE NIGHT. VITAL SIGNS CHARTED. REPORT GIVEN TO ONCOMING RN.
--- NOTE | 2020-06-10 08:00 | NUR ---
PT SITTING ON THE SIDE OF THE BED A/OX3, PLEASANT AND COOPERATIVE WITH CARE, FOLLOWS COMMANDS WELL, DENIES COMPLAINTS, BUT THEN WILL PUT HIS HAND ON HIS LEFT FLAND AND STATES HES SORE THERE, LUNGS ARE CLEAR IN UPPER FISHER, DIM IN BASES, RESP EVEN AND UNLABORED, NO COUGH NOTED, HRR, TELE IN PLACE RUNNING SR PER MONITOR, SEE STRIP, NO EDEMA NOTED, PPP+2, CAP REFILL <3SEC, VS STABLE, AFEBRILE, IV SITES ARE CLEAR AND PATENT, BTX4, ABD FLAT SOFT NONTENDER, VOIDS WITHOUT DIFF VIA URINAL, SKIN HAS MULTIPLE BRUISINGS, HEMATOMA TO LEFT ELBOW, LEFT FA HAS SOME SWELLING, NO OPEN AREAS NOTED, GAVINO FRANCO, CALL LIGHT IN REACH, BED ALARM ACTIVATED.
--- NOTE | 2020-06-10 13:09 | NUR ---
pt medicated for pain, turned up heperin per orders, warm blanket given for comfort, v.s. stable. no further changes or needs. sitting up in a chair, no further needs. call light in reach.
--- NOTE | 2020-06-10 13:26 | NUR ---
PAIN MANAGEMENT PT REPORTING PERSISTENT BACKPAIN. MEDICATED EARLIER WITH FENTANYL, BUT NOT ABLE TO GIVE FURTHER DOSE AT THIS TIME DUE TO ORDER TIME FRAME. SPOKE WITH DR. ZAYAS, STATES SHE WILL PUT REVIEW CHART AND PLACE ORDERS APPROPRIATE.
--- NOTE | 2020-06-10 14:05 | NUR ---
CARE ASSUMED REPORT RECEIVED, CARE ASSUMED AT 1300 FROM CHRISTA ANDRES. UPON ASSUMING CARE, PT WRITHING IN BED, REPORTS UNBEARABLE BACK PAIN. SEE NOTE REGARDING PAIN MANAGEMENT. MEDICATED WITH ULTRAM. PROVIDED WITH WARM PAD FOR BACK. REPOSITIONED. OTHERWISE, PT DENIES NEEDS. VITALS STABLE. SEE SHIFT ASSESSMENT.
--- NOTE | 2020-06-10 15:50 | NUR ---
CHEST PAIN PT COMPLAINING OF CHEST PAIN/PRESSURE 10/10 AND SHORTNESS OF BREATH. GRASPING LEFT CHEST AND MOANING. VITAL SIGNS STABLE, NO CHANGES NOTED ON TELEMETRY. MEDICATED X3 WITH NITRO, VITALS CONTINUE TO BE STABLE, CHEST PAIN PERSISTS AT 10/10. RESPIRATORY RATE IMPROVED. MEDICATED WITH FENTANYL. SINCE THEN, PT RESTING QUIETLY. WHEN WOKEN UP FOR REASSESSMENT, PT CALM, SMILING. WHEN ASKED ABOUT PAIN, HE SAYS, "I DON'T KNOW LET ME CHECK." AND THEN SITS UP AND REPORTS, "IT STILL REALLY HURTS WHEN I MOVE." NO NONVERBAL SIGNS OF PAIN AT REST. WILL CONTINUE TO CLOSELY MONITOR.
--- NOTE | 2020-06-10 15:54 | NUR ---
PALLIATIVE CARE/CODE STATUS PALLIATIVE CARE CONSULT INITIATED DUE TO PATIENT'S PERSISTENT SYMPTOMS AND DISEASE PROCESS. ELIUD STARR, PALLIATIVE CARE RN NOTIFIED THIS RN THAT PT HAS POLST THAT STATES DNR. I SPOKE WITH THE PATIENT REGARDING HIS POLST. PT STATES INITIALLY THAT HE IS UNSURE OF DNR STATUS. WHEN EXPLAINED THE PROCESS OF CPR AND INTUBATION, PT MAKES THE DECISION TO BE A DNR HE SAYS, "THAT'S PROBABLY JUST PROLONGING." PT CALM, COOPERATIVE. ORIENTED TO LOCATION, YEAR, SELF, FAMILY (WE DISCUSSED HIS SISTER MARCO), AND SITUATION (STATES "I GOT BEAT UP PRETTY BAD). EXPRESSING NEEDS CLARLY. INFORMED ELIUD IN PALLIATVE CARE OF THIS DISCUSSION. NEW ORDER PLACED PER DR. ZAYAS AND ELIUD FOR DNR STATUS.
--- NOTE | 2020-06-10 18:41 | NUR ---
SUMMARY SINCE PREVIOUS NOTES, NO ACUTE CHANGE. VITALS STABLE. PT CONTINUES TO HAVE DYSPNEA WITH EXERTION, BUT IS CALM AT REST. ATE SOME OF HIS DINNER, BACK TO BED, AND RESTING QUIETLY. EXPRESSES CONCERN ABOUT DYSPNEA WITH TRANSFER BUT RECOVERS WITHIN A FEW MINUTES. CYLINDER WORKER UNCHANGED. PT CONTINUES TO BE ORIENTED, BUT FORGETFUL. TALKS ABOUT CALLING HIS SISTER BUT STATES HE ISN'T READY YET. HEPARIN GTT INCREASED AND BOLUS GIVEN PER PHARMACY ORDERS, SEE EMAR.
[2020-06-11 01:18] LABS: BASOPHILS ABSOLUTE AUTO 0.04 K/mm3 (0.00-0.23); BASOPHILS PERCENT AUTO 1 % (0-2); EOSINOPHILS PERCENT AUTO 1 % (0-6); Hematocrit 36.8 % (37.0-53.0); Hemoglobin 10.9 g/dL (13.5-17.5); IMMATURE GRAN ABSOLUTE AUTO 0.03 K/mm3 (0.00-0.10); IMMATURE GRAN PERCENT AUTO 0 % (0-1); LYMPHOCYTES PERCENT AUTO 19 % (21-46); MONOCYTES ABSOLUTE AUTO 0.81 K/mm3 (0.16-1.47); MONOCYTES PERCENT AUTO 10 % (4-13); Mean Corpuscular HGB 22.5 pg (26.0-34.0); Mean Corpuscular HGB Conc 29.6 g/dL (31.5-36.5); Mean Corpuscular Volume 76 fL (80-100); Mean Platelet Volume 9.3 fL (9.1-12.4); NEUTROPHILS ABSOLUTE AUTO 5.81 K/mm3 (1.96-9.15); NEUTROPHILS PERCENT AUTO 69 % (41-73); Platelet Count 209 K/mm3 (150-400); RDW Coefficient Variation 16.5 % (11.7-14.2); RDW Standard Deviation 44.8 fL (35.1-46.3); Red Blood Cell Count 4.84 M/mm3 (4.30-5.90); White Blood Cell Count 8.39 K/mm3 (4.00-11.30)
[2020-06-11 01:48] LABS: Alanine Aminotransfer (ALT/SGP 90 U/L (12-78); Albumin, Blood 2.9 g/dL (3.4-5.0); Alk Phos 138 U/L (50-136); Anion Gap 8 mmol/L (6-16); Aspartate Aminotrans (AST/SGOT 133 U/L (12-37); Bilirubin, Total 1.3 mg/dL (0.1-1.0); Blood Urea Nitrogen 26 mg/dL (8-24); CO2, Blood 24 mmol/L (21-32); CPK Creatine Kinase 1304 U/L (39-308); Calcium, Blood 7.9 mg/dL (8.5-10.1); Chloride, Blood 112 mmol/L (98-108); Creatine Kinase MB 14.1 ng/mL (0.0-3.6); Creatine Kinase MB Index 1.1 (0.0-4.0); Creatinine, Blood 1.24 mg/dL (0.60-1.20); Globulin, Blood 2.9 g/dL (2.2-4.0); Glomerular Filtration Rate >60 (60-); Glucose, Blood 107 mg/dL (70-99); Potassium, Blood 3.7 mmol/L (3.5-5.5); Sodium, Blood 144 mmol/L (136-145); Total Protein, Blood 5.8 g/dL (6.4-8.2)
--- NOTE | 2020-06-11 04:30 | NUR ---
UPDATE VERIFIED WITH PHARMACIST GISELA VERNON THAT HEPARIN GTT SHOULD CONTINUE TO RUN AT CURRENT RATE EVEN AFTER LAST APTT RESULT.
--- NOTE | 2020-06-11 07:30 | NUR ---
DR. ROXANNE OLIVEIRA, FOOD SERVICE COUNTER CLERK TO BEDSIDE TO DISCUSS PLAN OF CARE WITH PATIENT. PER DR. OLIVEIRA, ADDING A LONG ACTING NITRATE TO PLAN FOR CHEST PAIN MANAGEMENT.
--- NOTE | 2020-06-11 07:39 | NUR ---
SHIFT SUMMARY PATIENT PLEASENT AND COOPERATIVE THROUGHOUT THE NIGHT. PATIENT MEDICATED FOR BACK PAIN PER EMAR. PATIENT HAS SEVERAL EPISODES OF CHEST PAIN THAT OCCURED WHILE PATIENT WAS STANDING AT THE BEDSIDE TO VOID THAT APPEARED TO RESOLVE WITH REST. PATIENT HAD ONE EPISODE OF CHEST PAIN REQUIRED NITRO TO RESOLVE. PATIENT APPEARED TO NAP ON AND OFF THROUGHOUT THE NIGHT. HEPARIN GTT RUNNING PER EMAR. VITAL SIGNS CHARTED. REPORT GIVEN TO ONCOMING RN.
[2020-06-11 11:28] LABS: International Normalized Ratio 1.33
--- NOTE | 2020-06-11 12:30 | NUR ---
CARE ASSUMED REPORT RECEIVED, CARE ASSUMED AT 0700 FROM CHRISTA ROCHE. SINCE ASSUMING CARE, PT CONTINUES TO HAVE INTERMITTENT PAIN, BUT RESOLVES MOSTLY WITH REST. MEDICATED ONCE WITH FENTANYL AND ULTRAM. LONG ACTING NITRATE ALSO ADDED TO PT'S MEDICATION REGIME. PT CONTINUES TO BE ORIENTED TODAY, BUT FORGETFUL. BED ALARM IN PLACE FOR SAFETY. SEE ASSESSMENTS AND VITALS.
--- NOTE | 2020-06-11 17:59 | NUR ---
SUMMARY NO ACUTE CHANGING THROUGHOUT SHIFT. PT CONTINUES TO HAVE INTERMITTENT CHEST PAIN, THAT HE PRIMARILY RESOLVES WITH REST. HE HAS BEEN MEDICATED TWICE WITH FENTANYL AND ULTRAM FOR BACK AND CHEST PAIN WHICH HAS BEEN EFFECTIVE. VITALS CONTINUE TO BE STABLE. NO CHANGES NOTED ON PHYSICIAN PRACTICE MARKET MANAGER. PT REPOSITIONS SELF FREQUETLY IN BED, INDEPENDENT USING URINAL. CALLING APPROPRIATELY FOR NEEDS.
--- NOTE | 2020-06-12 06:07 | NUR ---
SHIFT SUMMARY PATIENT PLEASENT AND COOPERATIVE THROUGHOUT THE NIGHT. PATIENT CONTINUES TO HAVE CHEST PAIN WITH ACTIVITY THAT RESOLVES WITH REST. PATIENT MEDICATED FOR PAIN PER EMAR. PATIENT USING A HEATING PAD FOR BACK PAIN RELIEF. PATIENT APPEARS TO BE ALBE TO TURN SELF IN BED. PATIENT APPEARED TO SLEEP WELL THROUGHOUT THE SECOND HALF OF THE NIGHT. CAMERA ON IN ROOM. VITAL SIGNS CHARTED. WILL CONTINUE TO MONITOR PATIENT AND REPORT TO ONCOMING RN.
--- NOTE | 2020-06-12 08:10 | NUR ---
pt sitting on side of the bed awake, alert oriented to self, place and date. follows directions and is cooperative with care, lungs are clear in upper jaffe, dim in bases, resp even and unlabored, no cough noted, or reported, hrr, tele in place running sr per monitor, see strip, trace edema noted to b/l le, hand are puffy, ppp+2, cap refill <3sec, vs stable, afebrile, iv site is clear and patent, btx4, abd flat soft nontender, voids via urinal, skin has bruising to left side, maew, henrik, call light in reach.
--- NOTE | 2020-06-12 15:12 | NUR ---
pt had a bedbath, he is in bed at this time, no complaints, will be going home tomorrow, is concerned about his dogs, talking to his sister from [place]. call light in reach.
--- NOTE | 2020-06-12 17:39 | NUR ---
PT COMPLAINING OF PAIN IN HIS LEFT SIDE. TRAMADAL GIVEN. HE REPORTS THAT WORKS WELL FOR HIM. SITTING UP ON SIDE OF BED EATING DINNER, NO FURTHER CHANGES THIS SHIFT. CALL LIGHT IN REACH.
--- NOTE | 2020-06-13 10:14 | NUR ---
PT WAS AWAKE AND RESTING IN BED DURING REPORT. PT HAS BEEN COOPERATIVE AND AGREEABLE TO TREATMENT. VS STABLE, LUNG AND HEART SOUNDS STABLE. PT COMPLAINS OF PAIN AND SORENESS THROUGHOUT HIS BODY, ULTRAM 50MG WAS GIVEN WITH MORNING MEDICATIONS WHICH PT REPORTED HELPFUL. PT IS AWAITING CAREGIVER AND HOME HEALTH TO BE AVAILABLE PRIOR TO DISCHARGE. PT STATES, "I'M SCARED TO GO HOME ALONE, I CAN'T CARE FOR MYSELF" THE [facility]ARE[facility]IVING AND WILL HAVE A HOME HEALTH REFERRAL; ONCE THIS IS SET UP AND AVAILABLE THE PT CAN DISCHARGE ACCORDING TO DR. GUERRERO
--- NOTE | 2020-06-13 11:40 | NUR ---
TRANSFER PT TRANSFERRED TO MEDICAL FLOOR, REPORT GIVEN TO MAC GOODWIN. PT TRANSFERRED WITH BELONGINGS VIA WHEELCHAIR ACCOMPANIED BY CHRISTA YIP. PT AT THIS POINT IS AWAITING DISCHARGE PLANNING TO FINALIZE HOME HEALTH AND CAREGIVING IN HIS HOME. VS STABLE UPON TRANSFER.
--- NOTE | 2020-06-13 16:38 | NUR ---
SHIFT SUMMARY- PT IS A/O, PLESANT AND COOPERTIVE. HE WAS TRANSFERED FROM PCU THIS AFTERNOON. HE REPORTED HAVING DIFFICULTY BREATHING. PAIN MEDICATION GIVEN AND NITRO TO TRY AND RELIEVE CHEST PAIN HE WAS FEELING. HE WAS PLACED ON 2L O2 VIA NASAL CANNULA. HIS O2 SATS WERE MAINTAINING AROUND 94%. SPOKE WITH DR GUERRERO ABOUT HIS SHORTNESS OF BREATH AND HEAVINESS HE WAS REPORTING IN HIS CHEST. ORDERED X-RAYS, TELE, AND LABS. DAUGHTER AT BEDSIDE, DR. GUERRERO CAME IN TO SPEAK WITH PT AND FAMILY. HE IS EATING AND DRINKING WELL. PLACED ON A 1500ML FLUID RESTRICTION. HE WAS RESTARTED ON HEPRIN DRIP. HIS BED IS IN THE LOW POSITION AND HIS CALL LIGHT IS WITHIN REACH.
--- NOTE | 2020-06-14 04:04 | NUR ---
SHIFT SUMMARY ASSUMED CARE OF PT AT 1900. PT IS A/OX4, DENIES N/T IN EXTREMTIES. HEART SOUNDS REGULAR, TELE SHOWS SINUS @ 88, DENIES CP. LUNG SOUNDS ARE DIMINISHED, PT TITRATED FROM 2L TO 1L, SATURATIONS ABOVE 97%, PT S/O SOB AFTER ANY ACTIVITY, SUCH USING THE URINAL. EDUCATED PT ABOUT HEART FAILURE AND THE EFFECTS ON THE BODY. PT USED URINAL FREQUENTLY, URINE CLEAR AND YELLOW. NO ACUTE EVENTS DURING THE NIGHT. PT SLEPT A COUPLE HOURS BUT MOSTLY PLAYED ON HIS PHONE. CALL LIGHT IN REACH, BED IN LOWEST POSTION, WILL CONTINUE TO MONITOR UNTIL DAYSHIFT NURSE ARRIVES.
[2020-06-14 06:11] LABS: Albumin, Blood 2.6 g/dL (3.4-5.0); Anion Gap 8 mmol/L (6-16); Blood Urea Nitrogen 17 mg/dL (8-24); Bun/Creatinine Ratio 20.5 (12.0-20.0); CO2, Blood 25 mmol/L (21-32); Calcium, Blood 8.5 mg/dL (8.5-10.1); Chloride, Blood 109 mmol/L (98-108); Creatinine, Blood 0.83 mg/dL (0.60-1.20); Glomerular Filtration Rate >60 (60-); Glucose, Blood 94 mg/dL (70-99); Phosphorus, Blood 3.2 mg/dL (2.5-4.9); Potassium, Blood 3.5 mmol/L (3.5-5.5); Sodium, Blood 142 mmol/L (136-145)
[2020-06-14] MEDS ORDERED: ALBU90OI INH (06:29)
[2020-06-14] MEDS ORDERED: ENTRESTO 49 MG1 EACH PO (06:35)
[2020-06-14] MEDS ORDERED: TRAM50 PO (06:35)
--- NOTE | 2020-06-14 16:50 | NUR ---
SHIFT SUMMARY PT A/O X3; PLEASANT AND COOPERATIVE WITH CARE. C/O CHEST PAIN AND MEDICATED WITH NITRO X1 THIS SHIFT. HEPARIN DRIP DC'D. 1 ASSIST WITH A FWW WHEN UP. DYSPNEA ON EXERTION. 1 LITER 02 VIA NC. BEEN RESTING COMFORTABLY IN BED FOR THE MAJORITY OF THE SHIFT. VSS; CALL LIGHT IN REACH.
[2020-06-15 05:19] LABS: BASOPHILS ABSOLUTE AUTO 0.03 K/mm3 (0.00-0.23); BASOPHILS PERCENT AUTO 1 % (0-2); EOSINOPHILS ABSOLUTE AUTO 0.29 K/mm3 (0.00-0.68); EOSINOPHILS PERCENT AUTO 5 % (0-6); Hematocrit 37.2 % (37.0-53.0); Hemoglobin 10.7 g/dL (13.5-17.5); IMMATURE GRAN ABSOLUTE AUTO 0.01 K/mm3 (0.00-0.10); IMMATURE GRAN PERCENT AUTO 0 % (0-1); LYMPHOCYTES ABSOLUTE AUTO 1.43 K/mm3 (0.84-5.20); LYMPHOCYTES PERCENT AUTO 26 % (21-46); MONOCYTES ABSOLUTE AUTO 0.58 K/mm3 (0.16-1.47); MONOCYTES PERCENT AUTO 11 % (4-13); Mean Corpuscular HGB 22.1 pg (26.0-34.0); Mean Corpuscular HGB Conc 28.8 g/dL (31.5-36.5); Mean Corpuscular Volume 77 fL (80-100); Mean Platelet Volume 9.8 fL (9.1-12.4); NEUTROPHILS ABSOLUTE AUTO 3.19 K/mm3 (1.96-9.15); NEUTROPHILS PERCENT AUTO 58 % (41-73); Platelet Count 210 K/mm3 (150-400); RDW Coefficient Variation 17.2 % (11.7-14.2); RDW Standard Deviation 46.9 fL (35.1-46.3); Red Blood Cell Count 4.85 M/mm3 (4.30-5.90); White Blood Cell Count 5.53 K/mm3 (4.00-11.30)
[2020-06-15 05:44] LABS: Albumin, Blood 2.5 g/dL (3.4-5.0); Anion Gap 5 mmol/L (6-16); Blood Urea Nitrogen 18 mg/dL (8-24); Bun/Creatinine Ratio 16.2 (12.0-20.0); CO2, Blood 30 mmol/L (21-32); Calcium, Blood 8.4 mg/dL (8.5-10.1); Chloride, Blood 109 mmol/L (98-108); Creatinine, Blood 1.11 mg/dL (0.60-1.20); Glomerular Filtration Rate >60 (60-); Glucose, Blood 93 mg/dL (70-99); Phosphorus, Blood 3.8 mg/dL (2.5-4.9); Potassium, Blood 3.5 mmol/L (3.5-5.5); Sodium, Blood 144 mmol/L (136-145)
--- NOTE | 2020-06-15 07:43 | NUR ---
SHIFT SUMMARY PATIENT ALERT AND ORIENTED. WAS MEDICATED TWICE PER EMAR FOR PAIN. PATIENT WAS SLIGHTLY SHORT OF BREATH AT TIMES OVERNIGHT. WAS ABLE TO SLEEP WELL. IV PATENT AND FLUSHED. BED IN LOWEST POSITION WITH WHEELS LOCKED. CALL LIGHT WITHIN REACH. REPORT GIVEN TO ONCOMING RN.
[2020-06-15] MEDS ORDERED: ASPI81CH PO (15:42)
[2020-06-15] MEDS ORDERED: MASOPHEN325 MG PO (15:42)
[2020-06-15] MEDS ORDERED: METO25ER PO (15:43)
[2020-06-15] MEDS ORDERED: FURO20 PO (15:43)
--- NOTE | 2020-06-15 16:34 | NUR ---
DISCHARGE NOTE PATIENT DISCHARGED HOME ON HOME HEALTH. PATIENT ALERT AND ORIENTED THROUGHOUT THIS SHIFT. PATIENT WORKED WITH PT AND OT THIS SHIFT, WALKING IN THE BIRD WITH PT. PATIENT HAD AN O2 EVALUATION PRIOR TO DISCHARGE WITH NO HOME O2 NEEDED. PATIENT PROVIDED WITH DISCHARGE AND MEDICATION INSTRUCTIONS, NO QUESTIONS AT THIS TIME. IV REMOVED PRIOR TO DISCHARGE. PATIENT'S FRIEND IN THE ROOM TO PROVIDED TRANSPORTATION HOME UPON DISCHARGE. PATIENT TO VEHICLE VIA WHEELCHAIR.
== END 2020-06-15 16:10 | disposition home health service (06) | DRG 682 ==
LOC: ER 20:39 → PCU 23:37 → ER 06-09 00:27 → PCU 06-09 00:29 → MEDS 06-13 11:53
PROVIDERS: Emergency Medicine; Internal Medicine; Pharmacist; ADMIT Internal Medicine
DX: N17.9 Acute kidney failure, unspecified (principal); I50.23 Acute on chronic systolic (congestive) heart failure; G92 Toxic encephalopathy; I21.4 Non-ST elevation (NSTEMI) myocardial infarction; M62.82 Rhabdomyolysis; I13.0 Hypertensive heart and chronic kidney disease with heart failure and stage 1 through stage 4 chronic kidney disease, or unspecified chronic kidney disease; I42.7 Cardiomyopathy due to drug and external agent; T43.621A Poisoning by amphetamines, accidental (unintentional), initial encounter; W19.XXXA Unspecified fall, initial encounter; I25.10 Atherosclerotic heart disease of native coronary artery without angina pectoris; N18.30 Chronic kidney disease, stage 3 unspecified; I25.2 Old myocardial infarction; Z95.5 Presence of coronary angioplasty implant and graft; Z87.891 Personal history of nicotine dependence; Z95.1 Presence of aortocoronary bypass graft; J44.9 Chronic obstructive pulmonary disease, unspecified; I73.9 Peripheral vascular disease, unspecified; T68.XXXA Hypothermia, initial encounter; X31.XXXA Exposure to excessive natural cold, initial encounter; R09.02 Hypoxemia; S05.12XA Contusion of eyeball and orbital tissues, left eye, initial encounter; S40.022A Contusion of left upper arm, initial encounter; R07.89 Other chest pain; I25.5 Ischemic cardiomyopathy; E86.0 Dehydration; F19.10 Other psychoactive substance abuse, uncomplicated
CPT/HCPCS: 0202U; 36415; 51702; 70450; 70486; 71045; 72125; 72170; 74176; 80053; 80069; 81001; 82550; 82553; 82947; 83605; 83690; 83735; 83880; 84146; 84484; 85025; 85610; 85730; 86850; 86900; 86901; 87086; 93005; 93010; 94761; 97110; 97116; 97161; 97166; 97530; 97535; 99285-25; A9270; A9270-GY; C8929; J1644; J1650; J1940; J3010; J7030; Q9957

== ENCOUNTER 2020-07-18 10:32 | Emergency (ER) | payer OTHER, MEDICARE ==
[~2020-07-18] VITALS: Ht 185.4 cm; Wt 71.2 kg
[~2020-07-18 10:32] MED LIST changes: +ALBU90OI INH; +MASOPHEN325 MG PO; +METO25ER PO; +TRAM50 PO
== END 2020-07-18 12:57 | disposition home or self-care (01) ==
LOC: ER 10:32
DX: S51.012A Laceration without foreign body of left elbow, initial encounter (principal); S60.222A Contusion of left hand, initial encounter; S60.221A Contusion of right hand, initial encounter; J44.9 Chronic obstructive pulmonary disease, unspecified; I50.9 Heart failure, unspecified; N18.30 Chronic kidney disease, stage 3 unspecified; I25.810 Atherosclerosis of coronary artery bypass graft(s) without angina pectoris; Z95.1 Presence of aortocoronary bypass graft; Z79.82 Long term (current) use of aspirin; Z79.02 Long term (current) use of antithrombotics/antiplatelets; Z88.8 Allergy status to other drugs, medicaments and biological substances; Z88.5 Allergy status to narcotic agent; Z79.899 Other long term (current) drug therapy; Z87.891 Personal history of nicotine dependence
CPT/HCPCS: 73130; 99283-25

== ENCOUNTER 2021-04-30 10:05 | Day surgery (SDC) | payer OTHER ==
[~2021-04-30] VITALS: Ht 185.4 cm; Wt 74.0 kg
[~2021-04-30 10:05] MED LIST changes: +APRISO0.375 GM PO; +DIPATR PO; +Nitroglycerin1 EAC1 TOP; +SODBIC650 PO
[2021-04-30] MEDS ORDERED: Isosorbide Mono30 MG PO (10:38)
[2021-04-30] MEDS ORDERED: SODBIC650 PO (10:40)
--- NOTE | 2021-04-30 17:02 | NUR ---
reportatken from Jalen Rn. left groin site soft and nontender. dressing with small amout of red drainage. no hematoma. left pedal pulse 1+. right pedal 2. patient denies discomfort. Dr Castellon here to answer patient's questions.
--- NOTE | 2021-04-30 18:00 | NUR ---
PATIENT ON SIDE TO VOID. LEFT GROIN SITE UNCHANGED
--- NOTE | 2021-04-30 19:02 | NUR ---
PATIENT VERBALIZED UNDERSTANDING OF DISCHARGE INSTRUCTIONS AND PRECAUTIONS. LEFT FEMORAL ARTERY SITE ASSESSED. REMAINS STABLE. NO SWELLING. NO HEMATOMA. NO BLEEDING. NO FURTHER QUESTIONS. PATIENT TRANSFERRED VIA WHEELCHAIR BY JANEEN GOODWIN TO WAITING CAR WITH FRIEND DRIVING.
== END 2021-04-30 19:00 | disposition home or self-care (01) ==
LOC: MHTC 10:05
DX: I65.21 Occlusion and stenosis of right carotid artery (principal); J44.9 Chronic obstructive pulmonary disease, unspecified; I25.10 Atherosclerotic heart disease of native coronary artery without angina pectoris; I10 Essential (primary) hypertension; E78.5 Hyperlipidemia, unspecified; I73.9 Peripheral vascular disease, unspecified; I25.2 Old myocardial infarction; I71.4 Abdominal aortic aneurysm, without rupture; Z95.5 Presence of coronary angioplasty implant and graft; Z95.1 Presence of aortocoronary bypass graft; Z87.891 Personal history of nicotine dependence; Z88.5 Allergy status to narcotic agent; Z88.8 Allergy status to other drugs, medicaments and biological substances
CPT/HCPCS: 36226-50; 37221; 75625; 75716; 75774; 76937; 93005; 93010; 99152; 99153; C1760; C1769; C1876; C1887; C1894; J1644; J2250; J3010; J7030; J7050; Q9967

== ENCOUNTER 2021-07-17 10:28 | Day surgery (SDC) | payer OTHER ==
[~2021-07-17] VITALS: Ht 185.4 cm; Wt 78.0 kg
[~2021-07-17 10:28] MED LIST changes: +EZET10 PO; +LOSA25 PO
[2021-07-17 11:50] LABS: Influenza A, PCR NEGATIVE (NEGATIVE); Influenza B, PCR NEGATIVE (NEGATIVE); Resp Syncytial Virus, PCR NEGATIVE (NEGATIVE); SARS-Cov-2 (COVID-19) PCR, MMC NEGATIVE (NEGATIVE)
--- NOTE | 2021-07-17 17:10 | NUR ---
assumed care of patient from Jalen GOODWIN. patient A&O. denies pain. dressings x 2 to right foot D&I. No swelling no bleeding. Left groin site soft and non tender. no hematoma no bleeding.
[2021-07-17] MEDS ORDERED: XARELTO20 MG (18:02)
--- NOTE | 2021-07-17 18:18 | NUR ---
PATIENT SITTING IN BED LEFT GROIN SITE UNCHANGED
--- NOTE | 2021-07-17 19:00 | NUR ---
PATIENT VERBALIZED UNDERSTANDING OF DISCHARGE INSTRUCTIONS AND PRECAUTIONS. LEFT GROIN SITE REMAINS SOFT AND NONTENDER. NO HEMATOMA NO BLEEDING. RIGHT FOOT DRESINGS d&i. NO HEMATOMA NO BLEEDING. IV SITE DCED WITH ACTHETER INTACT. NO FURTHER QUESTIONS. PATIENT TAKEN TO RIDE VIA WHEELE CHAIR BY LAZARO ROMERO.
== END 2021-07-17 18:00 | disposition home or self-care (01) ==
LOC: MHTC 10:28
PROVIDERS: Radiology Diagnostic Radiology
DX: I70.223 Atherosclerosis of native arteries of extremities with rest pain, bilateral legs (principal); I71.4 Abdominal aortic aneurysm, without rupture; I25.10 Atherosclerotic heart disease of native coronary artery without angina pectoris; I10 Essential (primary) hypertension; E78.5 Hyperlipidemia, unspecified; J44.9 Chronic obstructive pulmonary disease, unspecified; G47.30 Sleep apnea, unspecified; K21.9 Gastro-esophageal reflux disease without esophagitis; Z95.5 Presence of coronary angioplasty implant and graft; Z95.820 Peripheral vascular angioplasty status with implants and grafts; Z87.891 Personal history of nicotine dependence; Z88.5 Allergy status to narcotic agent; Z88.8 Allergy status to other drugs, medicaments and biological substances
CPT/HCPCS: 0241U; 36140; 37226; 37228; 75625; 75716; 75774; 76937; 85347; 99152; 99153; C1725; C1760; C1769; C1874; C1887; C1894; C2623; J1644; J2250; J3010; J7030; Q9967

== ENCOUNTER 2021-08-01 10:21 | Day surgery (SDC) | payer OTHER ==
[~2021-08-01 10:21] MED LIST changes: +XARELTO20 MG
[2021-08-01] MEDS ORDERED: NEBI10 PO (10:59)
--- NOTE | 2021-08-01 14:30 | NUR ---
[facility] alert and responds appropriately. right groin site soft and nontender. no hematoma . no bleeding. dressing D&I.
--- NOTE | 2021-08-01 14:45 | NUR ---
Dr Castellon in to see aptient and discuss rsults of procedure.
--- NOTE | 2021-08-01 15:22 | NUR ---
hob up 30 degrees. patient eating snack.
--- NOTE | 2021-08-01 17:41 | NUR ---
patient verbalized understanding of dischargeinstructions and precautions. IV site dced with catheter intact.right groin site remains soft and nontender dressing D&I no hematoma no bleeding. no further questions. patient taken by wheelchair to waiting car. friend driving patient home.
== END 2021-08-01 17:30 | disposition home or self-care (01) ==
LOC: MHTC 10:21
DX: I70.223 Atherosclerosis of native arteries of extremities with rest pain, bilateral legs (principal); I71.4 Abdominal aortic aneurysm, without rupture; I25.10 Atherosclerotic heart disease of native coronary artery without angina pectoris; I25.2 Old myocardial infarction; I10 Essential (primary) hypertension; E78.5 Hyperlipidemia, unspecified; J44.9 Chronic obstructive pulmonary disease, unspecified; G47.30 Sleep apnea, unspecified; K21.9 Gastro-esophageal reflux disease without esophagitis; Z95.5 Presence of coronary angioplasty implant and graft; Z95.820 Peripheral vascular angioplasty status with implants and grafts; Z87.891 Personal history of nicotine dependence; Z88.5 Allergy status to narcotic agent; Z88.8 Allergy status to other drugs, medicaments and biological substances; Z09 Encounter for follow-up examination after completed treatment for conditions other than malignant neoplasm; Z88.6 Allergy status to analgesic agent
CPT/HCPCS: 37225; 37228; 75716; 75774; 76937; 85347; 99152; 99153; C1725; C1760; C1769; C1874; C1887; C1894; C2623; J1644; J2250; J3010; J7030; J7050; Q9967

== ENCOUNTER 2021-08-23 17:42 | Inpatient (IN) | payer OTHER ==
[~2021-08-23] VITALS: Ht 185.4 cm; Wt 80.5 kg
[2021-08-23] MEDS ORDERED: XARELTO20 MG PO (18:05)
[2021-08-23 18:10] LABS: BASOPHILS ABSOLUTE AUTO 0.07 K/mm3 (0.00-0.23); BASOPHILS PERCENT AUTO 1 % (0-2); EOSINOPHILS ABSOLUTE AUTO 0.29 K/mm3 (0.00-0.68); EOSINOPHILS PERCENT AUTO 4 % (0-6); Hematocrit 46.7 % (37.0-53.0); Hemoglobin 15.4 g/dL (13.5-17.5); IMMATURE GRAN ABSOLUTE AUTO 0.03 K/mm3 (0.00-0.10); IMMATURE GRAN PERCENT AUTO 0 % (0-1); LYMPHOCYTES ABSOLUTE AUTO 2.68 K/mm3 (0.84-5.20); LYMPHOCYTES PERCENT AUTO 39 % (21-46); MONOCYTES ABSOLUTE AUTO 0.53 K/mm3 (0.16-1.47); MONOCYTES PERCENT AUTO 8 % (4-13); Mean Corpuscular HGB 30.9 pg (26.0-34.0); Mean Corpuscular Volume 94 fL (80-100); Mean Platelet Volume 9.2 fL (9.1-12.4); NEUTROPHILS ABSOLUTE AUTO 3.29 K/mm3 (1.96-9.15); NEUTROPHILS PERCENT AUTO 48 % (41-73); Platelet Count 187 K/mm3 (150-400); RDW Coefficient Variation 14.6 % (11.7-14.2); RDW Standard Deviation 50.2 fL (35.1-46.3); Red Blood Cell Count 4.99 M/mm3 (4.30-5.90); White Blood Cell Count 6.89 K/mm3 (4.00-11.30)
[2021-08-23 18:36] LABS: Albumin, Blood 3.5 g/dL (3.4-5.0); Albumin/Globulin Ratio 1.1 (0.8-1.8); Bilirubin, Total 1.1 mg/dL (0.1-1.0); Calcium, Blood 8.8 mg/dL (8.5-10.1); Creatinine, Blood 1.25 mg/dL (0.60-1.20); Globulin, Blood 3.3 g/dL (2.2-4.0); Potassium, Blood 3.8 mmol/L (3.5-5.5); Total Protein, Blood 6.8 g/dL (6.4-8.2)
[2021-08-24 02:26] LABS: Bun/Creatinine Ratio 18.7 (12.0-20.0); Calcium, Blood 8.6 mg/dL (8.5-10.1); Creatinine, Blood 1.34 mg/dL (0.60-1.20)
--- NOTE | 2021-08-24 05:37 | NUR ---
SHIFT SUMMARY ED ADMIT, PATIENT EXPERINCING DYSPNEA ON EXERTION. ON 2L NC (RA IS BASELINE). L LOBE WITH COARSE CRACKELS. INTERMITTENT COUGH. PATIENT DENIES CHEST PAIN. REPORTS INDIGESTION. HX TBI DIFFICULTY FINDING WORDS AT TIMES. ANXIOUS. SKIN WITH SCATTERED BRUISING NO OPEN SORES. ALL CONCERNS ADDRESSED.
--- NOTE | 2021-08-24 16:36 | NUR ---
SHIFT SUMMARY PATIENT MEDICATED FOR PAIN X2, ONCE WITH NORCO, ONCE WITH TYLENOL. PATIENT STATES HE HAS TAKEN NORCO BEFORE WITH NO ADVERSE REACTIONS. PATIENT DID NOT REPORT ANY ADVERSE REACTIONS AFTER TAKING IT THIS SHIFT. PATIENT ALSO STARTED ON LYRICA. PATIENT REPORTED NO ADVERSE REACTIONS AFTER TAKING IT THIS SHIFT. PATIENT DENIES NAUSEA AND SHORTNESS OF BREATH AT REST. PATIENT GETS VERY SOB WITH ACTIVITY, EVEN TALKING. PATIENT IS ON 2L N/C. PATIENT IS EATING AND DRINKING WELL. PATIENT IS PLEASANT AND COOPERATIVE WITH CARE. DR. CARTER CONSULTED THIS AFTERNOON.
--- NOTE | 2021-08-25 06:19 | NUR ---
Patient is alert and oriented x4. Generalized weakness. Needs his quad cane and one person assist to ambulate. Patient complains of chronic back pain, PRN pain medication provided. Patient slept throught out the night. Patient complains of cough and SOB, breathing treatment given. Bed in lowest position. Call light within reach.
[2021-08-25 09:18] LABS: Anion Gap 6 mmol/L (6-16); Blood Urea Nitrogen 25 mg/dL (8-24); Bun/Creatinine Ratio 21.6 (12.0-20.0); CO2, Blood 24 mmol/L (21-32); Calcium, Blood 8.9 mg/dL (8.5-10.1); Chloride, Blood 110 mmol/L (98-108); Creatinine, Blood 1.16 mg/dL (0.60-1.20); Glomerular Filtration Rate >60 (60-); Glucose, Blood 115 mg/dL (70-99); Sodium, Blood 140 mmol/L (136-145)
--- NOTE | 2021-08-25 12:16 | NUR ---
Attempted visit. Pt sleeping soundly and did not wake to voice. Will try again this afternoon.
--- NOTE | 2021-08-25 16:02 | NUR ---
Initial [facility] Care visit today with new referral received. Pt known to me from the community and previous visits, cardiac rehab. Pt has a fully signed POLST from 2019 stating he wishes to be a DNR with limited intervention, no intubation. Current code status is Full Code on this admission. Time spent with pt reviewing medical issues, his understanding, home situation, family and life review. Pt has no local family. His NOK is sister, Renetta, who lives in [facility] and is quite disabled/chronically ill. She does not travel. 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 Pt is a service connected [place] . He is seen by the home based primary care program thru the [facility] and has some caregiving hours for household help three days a week but has had difficulty finding and maintaining caregivers over the past two-three years. He is contemplating selling his home, with four acres of yard, that he cannot manage even with some stone driller helper to transition into an assisted living situation. He would like the increased socialization that would provide also. He is unsure what intervention is available to him for his chronic heart and lung disease but in reviewing the previous POLST and discussing his current wishes, he confirms that he does not want CPR or intubation and would prefer noninvasive intervention/medical management of his s/s. He has chronic back pain with chronic degenerative spinal changes and previous traumatic injuries, including TBI approx 1-2 years ago. He reports that his back pain is better managed today with combination of tylenol and norco started yesterday. He denies CP currently but does appear dyspnic with conversation, lying in bed. Sebas states that if he was unable to direct his care that his healthcare proxy would be his sister, Renetta.
--- NOTE | 2021-08-25 17:37 | NUR ---
SHIFT SUMMARY PATIENT DENIES PAIN, NAUSEA, AND SHORTNESS OF BREATH. PATIENT IS A SBA IN ROOM. PATIENT REPORTS UVULA FEELS SWOLLEN. UPON INSPECTION, IT LOOKS RED AND INFLAMMED. DR. HUBER NOTIFIED. CONTINUE TO MONITOR INCASE IT IS A REACTION TO NEW MEDICATIONS. PATIENT MET WITH PALLIATIVE CARE AND NEW ORDERS FRO DNR. PATIENT IS EATING AND DRINKING WELL. PATIENT IS PLEASANT AND COOPERATIVE WITH CARE.
[2021-08-26 06:23] LABS: Bun/Creatinine Ratio 20.3 (12.0-20.0); Calcium, Blood 9.1 mg/dL (8.5-10.1); Creatinine, Blood 1.38 mg/dL (0.60-1.20); Potassium, Blood 4.1 mmol/L (3.5-5.5)
--- NOTE | 2021-08-26 06:30 | NUR ---
Patient has been resting all night. Complained of pain on his back which is chronic. PRN pain given. Patient shows no signs of distress. All needs met. Call light within reach.
[2021-08-26] MEDS ORDERED: ENTRESTO 24 MG1 EACH PO (10:33)
[2021-08-26] MEDS ORDERED: AMOCLA500 PO (10:33)
[2021-08-26] MEDS ORDERED: HYDR1TAB94 PO (10:34)
--- NOTE | 2021-08-26 11:52 | NUR ---
Brief stop by today as pt was receiving d/c instructions for d/c home today.
--- NOTE | 2021-08-26 13:04 | NUR ---
DISCHARGE PATIENT TRANSPORTED VIA WHEELCHAIR TO [facility]. PATIENT LEFT PERSONAL VEHICLE AT [facility]. DISCHARGE INSTRUCTIONS EXPLAINED TO PATIENT. PATIENT STATED UNDERSTANDING. PACKET SENT WITH PATIENT. IV REMOVED WITHOUT DIFFICULTY. TELE REMOVED WITHOUT DIFFICULTY. MEDICATIONS FAXED TO [facility] AND BETI SCHULTZ DUE TO NEED FOR ABX TODAY. PATIENT AGREEABLE. PATIENT TO SCHEDULE FOLLOW UP WITH PCP AND ASSISTANT TO THE DIRECTOR. [facility] DELIVERED PORTABLE OXYGEN FOR RIDE HOME, WILL MEET PATIENT AT PATIENT HOUSE TO SET UP MORE OXYGEN.
== END 2021-08-26 12:30 | disposition home or self-care (01) | DRG 291 ==
LOC: ER 17:42 → MEDS 17:43
PROVIDERS: Emergency Medicine; Internal Medicine; ADMIT Family Medicine
DX: I13.0 Hypertensive heart and chronic kidney disease with heart failure and stage 1 through stage 4 chronic kidney disease, or unspecified chronic kidney disease (principal); I50.23 Acute on chronic systolic (congestive) heart failure; J96.01 Acute respiratory failure with hypoxia; K51.90 Ulcerative colitis, unspecified, without complications; Z20.822 Contact with and (suspected) exposure to COVID-19; Z51.5 Encounter for palliative care; Z66 Do not resuscitate; M54.9 Dorsalgia, unspecified; G89.29 Other chronic pain; I25.10 Atherosclerotic heart disease of native coronary artery without angina pectoris; I25.5 Ischemic cardiomyopathy; J44.9 Chronic obstructive pulmonary disease, unspecified; E78.5 Hyperlipidemia, unspecified; I73.9 Peripheral vascular disease, unspecified; N18.30 Chronic kidney disease, stage 3 unspecified; F43.10 Post-traumatic stress disorder, unspecified; Z95.1 Presence of aortocoronary bypass graft; Z87.891 Personal history of nicotine dependence; Z88.8 Allergy status to other drugs, medicaments and biological substances; Z98.890 Other specified postprocedural states; Z79.02 Long term (current) use of antithrombotics/antiplatelets; Z79.82 Long term (current) use of aspirin; Z79.899 Other long term (current) drug therapy
CPT/HCPCS: 36415; 71046; 80048; 80053; 83880; 84484; 85025; 93005; 93010; 94640; 94761; 96365; 96366; 96374; 96375; 96376; 99285-25; A9270; G0378; J1940; J1956

== ENCOUNTER 2021-11-20 12:20 | Inpatient (IN) | payer OTHER ==
[~2021-11-20] VITALS: Ht 185.4 cm; Wt 84.0 kg
[~2021-11-20 12:20] MED LIST changes: +ENTRESTO 24 MG1 EACH PO; +HYDR1TAB94 PO; +XARELTO20 MG PO
[2021-11-20 14:56] LABS: BASOPHILS ABSOLUTE AUTO 0.08 K/mm3 (0.00-0.23); BASOPHILS PERCENT AUTO 1 % (0-2); EOSINOPHILS ABSOLUTE AUTO 0.27 K/mm3 (0.00-0.68); EOSINOPHILS PERCENT AUTO 5 % (0-6); Hematocrit 45.5 % (37.0-53.0); Hemoglobin 14.7 g/dL (13.5-17.5); IMMATURE GRAN ABSOLUTE AUTO 0.02 K/mm3 (0.00-0.10); IMMATURE GRAN PERCENT AUTO 0 % (0-1); LYMPHOCYTES ABSOLUTE AUTO 1.71 K/mm3 (0.84-5.20); LYMPHOCYTES PERCENT AUTO 29 % (21-46); MONOCYTES ABSOLUTE AUTO 0.48 K/mm3 (0.16-1.47); MONOCYTES PERCENT AUTO 8 % (4-13); Mean Corpuscular HGB 30.4 pg (26.0-34.0); Mean Corpuscular HGB Conc 32.3 g/dL (31.5-36.5); Mean Corpuscular Volume 94 fL (80-100); Mean Platelet Volume 9.4 fL (9.1-12.4); NEUTROPHILS ABSOLUTE AUTO 3.45 K/mm3 (1.96-9.15); NEUTROPHILS PERCENT AUTO 57 % (41-73); Platelet Count 216 K/mm3 (150-400); RDW Coefficient Variation 15.9 % (11.7-14.2); RDW Standard Deviation 55.1 fL (35.1-46.3); Red Blood Cell Count 4.84 M/mm3 (4.30-5.90); White Blood Cell Count 6.01 K/mm3 (4.00-11.30)
[2021-11-20 15:05] LABS: Albumin, Blood 3.2 g/dL (3.4-5.0); Bilirubin, Total 1.1 mg/dL (0.1-1.0); Bun/Creatinine Ratio 14.6 (12.0-20.0); Calcium, Blood 8.9 mg/dL (8.5-10.1); Creatinine, Blood 1.23 mg/dL (0.60-1.20); Globulin, Blood 3.2 g/dL (2.2-4.0); Potassium, Blood 3.3 mmol/L (3.5-5.5); Total Protein, Blood 6.4 g/dL (6.4-8.2)
[2021-11-20 15:44] LABS: Base Excess Venous 3.2 mmol/L; Bicarbonate Venous 25.7 mmol/L (24.0-30.0); PCO2 Venous 48.8 mmHg (38-42); pH Blood Venous 7.37 (7.34-7.37)
[2021-11-20 16:25] LABS: Influenza A, PCR NEGATIVE (NEGATIVE); Influenza B, PCR NEGATIVE (NEGATIVE); Resp Syncytial Virus, PCR NEGATIVE (NEGATIVE); SARS-Cov-2 (COVID-19) PCR, MMC NEGATIVE (NEGATIVE)
[2021-11-20 17:16] LABS: Source, Urine Straight Cath
[2021-11-20 18:07] LABS: Appearance, Urine Clear (Clear); Bilirubin, Urine Neg (Neg); Blood, Urine 1+ (Neg); Color, Urine Yellow (P-Yellow); Glucose Qualitative, Urine Neg (Neg); Ketones, Urine Neg (Neg); Leukocyte Esterase, Urine Neg (Neg); Nitrite, Urine Neg (Neg); Protein, Urine 4+ (Neg); Urobilinogen, Urine 1+ (Normal)
[2021-11-20 18:44] LABS: Bacteria Mod /hpf; Red Blood Cells, Urine Rare /hpf (0-2); Squamous Epithelial Cells Rare /hpf (Few); White Blood Cells, Urine 0-2 /hpf (0-5)
--- NOTE | 2021-11-21 05:00 | NUR ---
SHIFT SUMMARY NO ACUTE CHANGES TO PT CONDITION SINCE BEING ADMITTED. PT SLEEPING OFF AND ON THROUGHOUT THE NIGHT. PT MOANS AND TALKS IN HIS SLEEP. PT GIVEN TYLENOL FOR PAIN. ASKED IF HE NEEDED SOMETHING ELSE AND HE SAID NO DUE TO HIS ULCERATIVE COLITIS. PT INSTRUCTED TO LET ME KNOW IF HE WANTED SOMETHING ELSE FOR HIS PAIN. PT HAVING PAIN IN HIS LOWER BACK. CALL LIGHT IS WITHIN REACH AND WILL CONTINUE TO MONITOR.
[2021-11-21 06:02] LABS: Bun/Creatinine Ratio 14.5 (12.0-20.0); Calcium, Blood 8.9 mg/dL (8.5-10.1); Creatinine, Blood 1.24 mg/dL (0.60-1.20); Potassium, Blood 3.6 mmol/L (3.5-5.5)
--- NOTE | 2021-11-21 10:23 | NUR ---
[facility] LUMBER CARRIER OPERATOR: SPOKE WITH CHRISTA WILLIAMMANAGER EMERGENCY DEPARTMENT FOR THE PATIENT (THE PATIENT [facility]). HE WANTED TO CHECK IN AND LEAVE HIS PHONE NUMBER. IT IS: [phone] EXT [phone].
--- NOTE | 2021-11-21 11:31 | NUR ---
Spiritual Care Visit. At the request of Pts. nurse, who prepared this sugar refiner that Pt. may throw him out...didn't happen. Pt. is in bed and welcomes my visit. Pt. is unsettled by not having family close to him (siblings are in [place] and [place] and are in worse physical condition). Provide a calming presence and developed rapport. Conduct a life review. Pt. is very open to share with this sugar refiner. Explore issuse of boom and belief. Pt. verbalized gratitude for the spiritual care visit.
--- NOTE | 2021-11-21 13:19 | NUR ---
Echocardiogram completed.
--- NOTE | 2021-11-21 18:50 | NUR ---
END OF SHIFT SUMMARY: PATIENT PAIN CONTROLLED WITH PRN PAIN MEDICATIONS. PATIENT REPORTS PAIN IS ESPECIALLY HIGH WITH ACTIVITY. PATIENT ALSO ABLE TO GET COMFORTABLE WITH REST AND THE K-PAD. PATIENT'S VIDEO PRODUCTION INTERN FROM THE [facility] CALLED (SEE NOTE) TO CHECK ON PATIENT AND LEAVE PHONE NUMBER. PATIENT IS AWARE THAT HE MAY REQUIRE INCREASED CAREGIVING UPON DISCHARGE PER HIS REPORT. PATIENT HAS SOME SHORTNESS OF BREATH WITH ACTIVITY. THIS MORNING PATIENT REPORTED SOME SHORTNESS OF BREATH AT REST. IT WAS A COMBINATION OF LEFT FLANK PAIN, LUNG STATUS AND ANXIETY. PROVIDED REASSURANCE, MEDICATED PER SCHEDULED DIURETIC AND DISCUSSED PAIN WITH DR. MOJICA. LUNGS DIMINISHED BUT NOT COARSE. PATIENT IMPROVED.
--- NOTE | 2021-11-22 04:07 | NUR ---
SHIFT SUMMARY NO ACUTE CHANGES TO PT CONDITION. PT CONTINUES TO HAVE BACK AND FLANK PAIN. MEDICATED PER EMAR NECESSARY. PT PLEASANT AND COOPERATIVE, BUT FORGETFUL. CALL LIGHT WITHIN HIS REACH. WILL CONTINUE TO MONITOR.
[2021-11-22 05:24] LABS: Hematocrit 44.7 % (37.0-53.0); Hemoglobin 14.1 g/dL (13.5-17.5); Mean Corpuscular HGB 29.8 pg (26.0-34.0); Mean Corpuscular HGB Conc 31.5 g/dL (31.5-36.5); Mean Corpuscular Volume 95 fL (80-100); Mean Platelet Volume 9.3 fL (9.1-12.4); Platelet Count 169 K/mm3 (150-400); RDW Coefficient Variation 15.8 % (11.7-14.2); RDW Standard Deviation 55.5 fL (35.1-46.3); Red Blood Cell Count 4.73 M/mm3 (4.30-5.90); White Blood Cell Count 6.03 K/mm3 (4.00-11.30)
[2021-11-22 05:52] LABS: Anion Gap 9 mmol/L (6-16); Blood Urea Nitrogen 24 mg/dL (8-24); Bun/Creatinine Ratio 17.8 (12.0-20.0); CO2, Blood 24 mmol/L (21-32); Calcium, Blood 9.3 mg/dL (8.5-10.1); Chloride, Blood 111 mmol/L (98-108); Creatinine, Blood 1.35 mg/dL (0.60-1.20); Glomerular Filtration Rate 55 (60-); Glucose, Blood 112 mg/dL (70-99); Potassium, Blood 3.7 mmol/L (3.5-5.5); Sodium, Blood 144 mmol/L (136-145)
--- NOTE | 2021-11-22 06:29 | NUR ---
PT STS THAT HIS KNEE IS SORE AND THAT HE HURT IT MANY YEARS AGO AND MUST HAVE HURT IT AGAIN WHILE SLEEPING. CLIFFORD BANDAGE WRAP PLACED PER PT REQUEST. TYLENOL GIVEN PER EMAR.
--- NOTE | 2021-11-22 18:04 | NUR ---
SHIFT SUMMARY; PATIENT APPEARS VERY ANXIOUS OFF AND ON THROUGHOUT THE DAY. HE IS CONCERNED THAT HIS EF IS 20 TO 30% PER . EDUCATION IS PROVIDED BY THIS RN ABOUT LASIX TAKING LOAD OFF HEART BY REMOVING FLUID. PATIENTS VITAL SIGNS REMAIN STABLE THROUGHOUT THE DAY. HE RECEIVED 2 BREATHING TREATMENTS FOR SOB. HIS HOME MED (MESALAMINE) WAS BROUGHT FROM HOME BY HIS FRIEND AND IT WAS SENT TO PHARMACY AND ORDER CHANGED TO REFLECT CORRECT DOSEAGE. PATIENT TAKES HIS PILLS WHOLE WITH WATER WITHOUT DIFF AND USES CALL LIGHT APPROPRIATELY.
--- NOTE | 2021-11-22 20:49 | NUR ---
PT COMPLAINS OF IV BOTHERING HIM. IV IN L AC INFILTRATED, SWOLLEN, AND RED. IV REMOVED BY MYSELF AND NEW IV PLACED IN R FA BY CHRISTA PEARL. PT ALSO COMPLAINS OF HOT AND COLD FLASHES, OVERALL BODY PAIN. PT MEDICATED PER EMAR AND VS ARE STABLE. NO FEVER.
--- NOTE | 2021-11-23 04:15 | NUR ---
PT STS "FEELING COLD". TEMPERATURE CHECKED, 99.2 TEMPORAL. WARM BLANKET GIVEN.
--- NOTE | 2021-11-23 04:36 | NUR ---
SHIFT SUMMARY PT COMPLAINS OF BEING HOT AND BEING COLD. PT VS WITHIN NORMAL LIMITS. PT HAS NO FEVER. WARM BLANKET GIVEN. PT HAD INFILTRATED IV AND IT WAS TAKEN OUT. ANTIBIOTIC CREAM PLACED ON IV SITE AND WRAPPED WITH GAUZE AND COBAN. NEW IV PLACED BY CHRISTA PEARL. PT MEDICATED FOR PAIN PER EMAR WHEN APPROPRIATE. CALL LIGHT WITHIN REACH. WILL CONTINUE TO MONITOR.
[2021-11-23 05:30] LABS: Albumin, Blood 3.3 g/dL (3.4-5.0); Anion Gap 8 mmol/L (6-16); Blood Urea Nitrogen 25 mg/dL (8-24); Bun/Creatinine Ratio 17.5 (12.0-20.0); CO2, Blood 29 mmol/L (21-32); Calcium, Blood 9.5 mg/dL (8.5-10.1); Chloride, Blood 105 mmol/L (98-108); Creatinine, Blood 1.43 mg/dL (0.60-1.20); Glomerular Filtration Rate 51 (60-); Glucose, Blood 105 mg/dL (70-99); Phosphorus, Blood 4.1 mg/dL (2.5-4.9); Potassium, Blood 4.3 mmol/L (3.5-5.5); Sodium, Blood 142 mmol/L (136-145)
--- NOTE | 2021-11-23 17:34 | NUR ---
SHIFT SUMMARY PT IS A FULL CODE. PT APPEARS CONFUSED, OFTEN NOT REMEMBERING EVENTS FROM EARLIER IN THE DAY. HE GRUNTS AND BREATHES HEAVILY, OFTEN REFUSING TO REAPPLY HIS O2. THE PT STATED HE FELL TODAY, HE DID NOT NOTIFY NURSING STAFF OF THE INCIDENT UNTIL LATER IN THE DAY. THE PROVIDER WAS NOTIFIED AND A CT SCAN WAS ORDERED. THE PT IS LEAVING FOR THE CT SCAN NOW. HE IS INDEPENDENT AND USES THE URINAL. HE WAS PRESCRIBED ZYPREXA THIS MORNING AND RECEIVED HIS FIRST DOSE TODAY. HE SLEPT MOST OF THE DAY. WILL CONTINUE TO MONITOR AND ASSESS UNTIL NOC SHIFT ARRIVES. CALL LIGHT PLACED WITHIN REACH.
--- NOTE | 2021-11-24 04:13 | NUR ---
Patient with temp of 101.4 at beginning of shift. Tylenol and pulmonary toilet able to bring temp to WNL at 0000. Patient restless and confused during night. Patient states he thinks he is at home. Doesnt know where [place] is. Later in the night patient discussing why he moved to [place] from [place]. Patient unsteady when up. Bed alarm in place. Patient voiding and had a BM in night. Patient frequently removing telemetry patches and oxygen. Head CT from possible fall 11/23 negative for acute injury. Patient with harsh, productive cough overnight. Patient states cough is new.
[2021-11-24 05:05] LABS: Calcium, Blood 8.6 mg/dL (8.5-10.1); Creatinine, Blood 1.5 mg/dL (0.60-1.20); Potassium, Blood 3.7 mmol/L (3.5-5.5)
--- NOTE | 2021-11-24 15:07 | NUR ---
DISCHARGE AGAINST MEDICAL ADVISE PT HAS EXPRESSED T/O THE DAY THAT HE WANTS TO DISCHARGE HOME. PT HAS EXPRESSED THAT HE IS SUSPICIOUS/DISTRUSTING OF MEDICAL AND NURSING STAFF. PT WAS EDUCATED THAT THE DOCTOR DOES NOT FEEL HE IS MEDICALLY READY TO DISCHARGE. PT'S FRIEND/CAREGIVER TANNER ARRIVED AT APPROXIMATELY 1450 TO TAKE THE PATIENT HOME. WHEN TANNER ARRIVED THE PT TOLD STAFF THEY WERE NOT ALLOWED TO UPDATE TANNER REGARDING PATIENT'S MEDICAL CONDITION. TANNER WAS EDUCATED THAT HE WAS NOT OBLIGATED TO TAKE THE PATIENT HOME; HE STATED HE WOULD NOT DECLINE THE PATIENT'S WISHES TO TAKE HIM HOME. PT ALERT AND ORIENTED TO SELF, FRIEND, SITUATION, LOCATION AND TO THE DAY OF THE MONTH, PT WAS ORENTED TO MONTH AND YEAR. PT EXPRESSED THAT HE DID NOT BELIEVE HE HAD A CHF EXACERBATION. ATTEMPTED TO EDUCATE PT ABOUT SYMPTOMS OF CHF, PT VERBALIZED UNDERSTANDING BUT CONTINUED TO INSIST ON RETURNING HOME. DR. CAMILO NOTIFIED OF PT'S WISHES TO LEAVE AMA AND HIS MENTATION. PT APPEARED ABLE TO UNDERSTAND AND MAKE DECISIONS; HOWEVER HE WAS PARANOID/DISTRUSTFUL OF STAFF. PT WAS PROVIDED WITH AMA FORM. PRIOR TO PROVIDING EDUCATION REGARDING RISKS OF LEAVING EARLY, THIS RN CLARIFIED WITH THE PATIENT THAT IT WAS OK TO DISCUSS AMA FORM WITH TANNER IN THE ROOM; PT CONFIRMED OK FOR AMA EDUCATION AND RISKS OF LEAVING TO BE DISCUSSED WITH TANNER PRESENT. AFTER EDUCATION PT CONTINUED TO WANT TO LEAVE. PT UNSTEADY ON HIS FEET SO A WHEELCHAIR WAS PROVIDED, TANNER ASSISTED PT OUT PER PT REQUEST. DR. CAMILO NOTIFIED OF DISCHARGE. ELVIRA AIRWAY CONTROLLER NOTIFIED OF SITUATION PRIOR TO PT LEAVING.
--- NOTE | 2021-11-24 16:23 | NUR ---
SHIFT ASSESSMENT DOCUMENTATION BY GIANNA HUITRON STUDENT NURSE APPEARS COMPLETE AND ACCURATE. ASSESSMENT FINDINGS BY GIANNA HUITRON STUDENT NURSE ARE IN AGREEANCE WITH THIS RN'S ASSESSMENT FINDINGS.
== END 2021-11-24 15:07 | disposition left against medical advice (07) | DRG 291 ==
LOC: ER 12:20 → MEDS 20:11
PROVIDERS: Emergency Medicine; Internal Medicine; Student in an Organized Health Care Education/Training Program; ADMIT Internal Medicine
DX: I13.0 Hypertensive heart and chronic kidney disease with heart failure and stage 1 through stage 4 chronic kidney disease, or unspecified chronic kidney disease (principal); J96.21 Acute and chronic respiratory failure with hypoxia; J96.22 Acute and chronic respiratory failure with hypercapnia; I50.23 Acute on chronic systolic (congestive) heart failure; K51.90 Ulcerative colitis, unspecified, without complications; Z51.5 Encounter for palliative care; Z66 Do not resuscitate; Z20.822 Contact with and (suspected) exposure to COVID-19; F31.9 Bipolar disorder, unspecified; E66.9 Obesity, unspecified; M54.50 Low back pain, unspecified; I25.5 Ischemic cardiomyopathy; J44.9 Chronic obstructive pulmonary disease, unspecified; R07.89 Other chest pain; M25.562 Pain in left knee; N18.30 Chronic kidney disease, stage 3 unspecified; E87.6 Hypokalemia; F43.10 Post-traumatic stress disorder, unspecified; I73.9 Peripheral vascular disease, unspecified; I25.10 Atherosclerotic heart disease of native coronary artery without angina pectoris; Z68.23 Body mass index [BMI] 23.0-23.9, adult; I25.2 Old myocardial infarction; Z95.5 Presence of coronary angioplasty implant and graft; Z95.1 Presence of aortocoronary bypass graft; Z98.890 Other specified postprocedural states; Z87.891 Personal history of nicotine dependence; Z88.8 Allergy status to other drugs, medicaments and biological substances; Z88.5 Allergy status to narcotic agent; Z99.81 Dependence on supplemental oxygen; Z79.01 Long term (current) use of anticoagulants; Z79.82 Long term (current) use of aspirin; Z79.899 Other long term (current) drug therapy
CPT/HCPCS: 0241U; 36415; 70450; 71045; 80048; 80053; 80069; 81001; 82803; 83880; 84145; 84484; 85025; 85027; 87086; 93005; 93010; 93306; 94640; 94664; 94667; 94760; 96374; 97110; 97162; 97166; 97530; 97535; 98960; 99285-25; A9270; J1940

== ENCOUNTER 2021-12-14 12:13 | Emergency (ER) | payer OTHER ==
[~2021-12-14] VITALS: Ht 185.4 cm; Wt 77.1 kg
[2021-12-14 12:45] LABS: BASOPHILS ABSOLUTE AUTO 0.08 K/mm3 (0.00-0.23); BASOPHILS PERCENT AUTO 1 % (0-2); EOSINOPHILS ABSOLUTE AUTO 0.24 K/mm3 (0.00-0.68); EOSINOPHILS PERCENT AUTO 4 % (0-6); Hematocrit 46.8 % (37.0-53.0); IMMATURE GRAN ABSOLUTE AUTO 0.01 K/mm3 (0.00-0.10); IMMATURE GRAN PERCENT AUTO 0 % (0-1); LYMPHOCYTES ABSOLUTE AUTO 2.06 K/mm3 (0.84-5.20); LYMPHOCYTES PERCENT AUTO 37 % (21-46); MONOCYTES ABSOLUTE AUTO 0.46 K/mm3 (0.16-1.47); MONOCYTES PERCENT AUTO 8 % (4-13); Mean Corpuscular HGB 29.7 pg (26.0-34.0); Mean Corpuscular HGB Conc 32.1 g/dL (31.5-36.5); Mean Corpuscular Volume 93 fL (80-100); Mean Platelet Volume 9.6 fL (9.1-12.4); NEUTROPHILS PERCENT AUTO 50 % (41-73); Platelet Count 169 K/mm3 (150-400); RDW Coefficient Variation 15.6 % (11.7-14.2); RDW Standard Deviation 52.8 fL (35.1-46.3); Red Blood Cell Count 5.05 M/mm3 (4.30-5.90); White Blood Cell Count 5.65 K/mm3 (4.00-11.30)
[2021-12-14 13:07] LABS: Albumin, Blood 3.1 g/dL (3.4-5.0); Albumin/Globulin Ratio 0.9 (0.8-1.8); Bilirubin, Total 2.1 mg/dL (0.1-1.0); Bun/Creatinine Ratio 14.5 (12.0-20.0); Calcium, Blood 8.9 mg/dL (8.5-10.1); Creatinine, Blood 1.31 mg/dL (0.60-1.20); Globulin, Blood 3.4 g/dL (2.2-4.0); Potassium, Blood 3.2 mmol/L (3.5-5.5); Total Protein, Blood 6.5 g/dL (6.4-8.2)
== END 2021-12-14 18:00 | disposition home or self-care (01) ==
LOC: ER 12:13
PROVIDERS: Student in an Organized Health Care Education/Training Program
DX: I50.40 Unspecified combined systolic (congestive) and diastolic (congestive) heart failure (principal); F41.9 Anxiety disorder, unspecified; I25.5 Ischemic cardiomyopathy; J44.9 Chronic obstructive pulmonary disease, unspecified; I25.10 Atherosclerotic heart disease of native coronary artery without angina pectoris; N18.30 Chronic kidney disease, stage 3 unspecified; Z88.6 Allergy status to analgesic agent; Z88.8 Allergy status to other drugs, medicaments and biological substances; Z88.5 Allergy status to narcotic agent; Z79.899 Other long term (current) drug therapy; Z87.891 Personal history of nicotine dependence; Z99.81 Dependence on supplemental oxygen
CPT/HCPCS: 36415; 71046; 80053; 83880; 84484; 85025; 93005; 93010; J1940

== ENCOUNTER 2021-12-24 09:12 | Emergency (ER) | payer OTHER ==
[~2021-12-24] VITALS: Ht 185.4 cm; Wt 74.8 kg
[2021-12-24] MEDS ORDERED: OXYACE7.5T PO (10:48)
== END 2021-12-24 15:13 | disposition home or self-care (01) ==
LOC: ER 09:12
DX: S42.211A Unspecified displaced fracture of surgical neck of right humerus, initial encounter for closed fracture (principal); J44.9 Chronic obstructive pulmonary disease, unspecified; I25.10 Atherosclerotic heart disease of native coronary artery without angina pectoris; N18.30 Chronic kidney disease, stage 3 unspecified; I50.9 Heart failure, unspecified; Z95.1 Presence of aortocoronary bypass graft; Z87.891 Personal history of nicotine dependence; W01.0XXA Fall on same level from slipping, tripping and stumbling without subsequent striking against object, initial encounter; Y92.9 Unspecified place or not applicable; Z88.5 Allergy status to narcotic agent; Z88.8 Allergy status to other drugs, medicaments and biological substances; Z79.899 Other long term (current) drug therapy; Z79.82 Long term (current) use of aspirin; Z79.02 Long term (current) use of antithrombotics/antiplatelets; Z79.01 Long term (current) use of anticoagulants
CPT/HCPCS: 29105; 73020; 96374; 99284-25; A9270; J3010

== ENCOUNTER 2022-01-07 09:19 | Inpatient (IN) | payer OTHER ==
[~2022-01-07] VITALS: Ht 185.4 cm; Wt 76.0 kg
[~2022-01-07 09:19] MED LIST changes: +OXYACE7.5T PO
--- NOTE | 2022-01-07 10:50 | NUR ---
ASSUMED CARE OF PATIENT IV STARTED AND CONTINUED ADMISSION STARTED BY JAIME GOODWIN
--- NOTE | 2022-01-07 14:00 | NUR ---
01/07/22 Erica Lundy PATIENT LAST TOOK HIS XARELTO 01/05/22. SURGEON NOTIFIED.
--- NOTE | 2022-01-07 17:23 | NUR ---
ADMIT NOTE PATIENT ARRIVED TO UNIT 1700 FROM PACU. POST OP RIGHT TOTAL SHOULDER WITH DR COVINGTON. PATIENT IS DROWSY ON ARRIVAL. SNORING WHEN NOT SPOKEN TO WITH FREQUENT APNEIC EPISODES, EVERY 1-2 MINUTES LASTING 10-20 SECONDS. OXYGEN AT 6L VIA NC TO KEEP SATS ABOVE 90% THROUGH APNEAS. RIGHT SHOULDER INCISION WITH PRINEO DRESSING INTACT. BRUSING TO RIGHT AXILLA AND ARM DUE TO PREVIOUS HUMERUS FRACTURE. RIGHT ARM IN SLING. IV FLUID RUNNING. PATIENT CONTINUES TO SLEEP. WILL CONTINUE TO MONITOR. LUNG SOUNDS CLEAR. RIGHT FINGERS WARM WITH CAP REFILL LESS THAN 3 SECONDS.
[2022-01-08 04:39] LABS: BASOPHILS ABSOLUTE AUTO 0.01 K/mm3 (0.00-0.23); BASOPHILS PERCENT AUTO 0 % (0-2); EOSINOPHILS PERCENT AUTO 0 % (0-6); Hematocrit 39.9 % (37.0-53.0); Hemoglobin 12.4 g/dL (13.5-17.5); IMMATURE GRAN ABSOLUTE AUTO 0.02 K/mm3 (0.00-0.10); IMMATURE GRAN PERCENT AUTO 0 % (0-1); LYMPHOCYTES ABSOLUTE AUTO 0.73 K/mm3 (0.84-5.20); LYMPHOCYTES PERCENT AUTO 11 % (21-46); MONOCYTES ABSOLUTE AUTO 0.34 K/mm3 (0.16-1.47); MONOCYTES PERCENT AUTO 5 % (4-13); Mean Corpuscular HGB 29.5 pg (26.0-34.0); Mean Corpuscular HGB Conc 31.1 g/dL (31.5-36.5); Mean Corpuscular Volume 95 fL (80-100); Mean Platelet Volume 9.9 fL (9.1-12.4); NEUTROPHILS ABSOLUTE AUTO 5.75 K/mm3 (1.96-9.15); NEUTROPHILS PERCENT AUTO 84 % (41-73); Platelet Count 235 K/mm3 (150-400); RDW Coefficient Variation 17.7 % (11.7-14.2); Red Blood Cell Count 4.21 M/mm3 (4.30-5.90); White Blood Cell Count 6.85 K/mm3 (4.00-11.30)
[2022-01-08 04:58] LABS: Calcium, Blood 8.6 mg/dL (8.5-10.1); Creatinine, Blood 1.35 mg/dL (0.60-1.20); Magnesium, Blood 2.1 mg/dL (1.6-2.4); Potassium, Blood 4.7 mmol/L (3.5-5.5)
--- NOTE | 2022-01-08 04:59 | NUR ---
SHIFT SUMMARY POD1 R SHOULDER HEMIARTHROPLASTY WITH PRINEO DRESSING, APPEARS TO BE CDI. PT HAS R ARM SLING. NWB. R ARM WITH LIMITED RANGE OF MOTION, BRUISING AROUND THE CHEST AND UNDER ARMPIT. PT ABLE TO MOVE ALL FINGERS, REPORTS SOME MILD NUMBNESS DENIES TINGLING SENSATION. CAP REFILL WNL. PT APPEARS TO HAVE SOME HALLUCINATION AT THE BEGINNING OF SHIFT BUT MENTATION STARTED TO CLEAR UP AROUND MIDNIGHT. PT GOT UP WITH 2 MIN ASSIST TO BATHROOM. VOIDED. REPORTS MODERATE PAIN AFTER AMBULATING. PAIN MANAGED WITH 2 NORCO. DENIES DIZZINESS BUT FEELING WEAK AND WOBBLY. VSS. DENIES CP. REMAINED ON 5.5L NASAL CANULA OVERNIGHT. SATURATING BETWEEN 90-94%. ENC DEEP BREATHING EXERCISE AND USE OF I/S. TOLERATNG PO INTAKE DENIES NAUSEA AND VOMITING. IV ABX GIVEN. SALINE LOCKED. CALL LIGHT WITHIN REACH. WILL PROVIDE REPORT TO ONCOMING NURSE.
[2022-01-08 15:18] LABS: SARS-Cov-2 (COVID-19) PCR, MMC NEGATIVE (NEGATIVE)
--- NOTE | 2022-01-08 17:29 | NUR ---
DISCHARGE SUMMARY PATIENT ALERT AND ORIENTED. TOLERATING REGULAR DIET AND LIQUIDS. AMBULATED IN ROOM SBA. RIGHT ARM IN SLING. DISCHARGED BACK TO [facility]. REPORT CALLED TO SNF RN. GAVE UPDATE ON PATIENT STATUS INCLUDING WOUND, ACTIVITY, PAIN, RESP STATUS, MED HX. PATIENT LEFT UNIT AT 1705 VIA WHEELCHAIR WITH MEDICAL TRANSPORT FOR SNF. IV DC'D WNL.
== END 2022-01-08 17:00 | DRG 483 ==
LOC: ORSCMMR 09:19 → ORD 11:00 → ORSCMMR 15:46 → SURS 15:46
PROVIDERS: ADMIT Orthopaedic Surgery
PROC: 0RRJ0J7 Replacement of Right Shoulder Joint with Synthetic Substitute, Glenoid Surface, Open Approach (ICD-10-PCS; principal; 2022-01-07 11:00)
DX: S42.211A Unspecified displaced fracture of surgical neck of right humerus, initial encounter for closed fracture (principal); K51.90 Ulcerative colitis, unspecified, without complications; K21.9 Gastro-esophageal reflux disease without esophagitis; M54.9 Dorsalgia, unspecified; J44.9 Chronic obstructive pulmonary disease, unspecified; I25.10 Atherosclerotic heart disease of native coronary artery without angina pectoris; E78.5 Hyperlipidemia, unspecified; I10 Essential (primary) hypertension; I73.9 Peripheral vascular disease, unspecified; Z20.822 Contact with and (suspected) exposure to COVID-19; G47.30 Sleep apnea, unspecified; W18.30XA Fall on same level, unspecified, initial encounter; Z87.19 Personal history of other diseases of the digestive system; Z98.890 Other specified postprocedural states; Z95.5 Presence of coronary angioplasty implant and graft; Z98.62 Peripheral vascular angioplasty status; Z87.891 Personal history of nicotine dependence; Z79.899 Other long term (current) drug therapy; Z79.51 Long term (current) use of inhaled steroids; Z79.82 Long term (current) use of aspirin; Z79.02 Long term (current) use of antithrombotics/antiplatelets; Z79.891 Long term (current) use of opiate analgesic; Z79.01 Long term (current) use of anticoagulants; Z88.5 Allergy status to narcotic agent; Z88.8 Allergy status to other drugs, medicaments and biological substances
CPT/HCPCS: 36415; 73030; 80048; 83735; 85025; 86850; 86900; 86901; 97110; 97161; 97166; 97530; 97535; A9270; C1713; C1776; J0171; J0690; J0735; J1100; J1885; J2250; J2405; J2704; J2795; J3010; J7120; U0004

== ENCOUNTER 2022-05-08 16:25 | Emergency (ER) | payer OTHER ==
[~2022-05-08] VITALS: Ht 185.4 cm; Wt 72.6 kg
[2022-05-08] MEDS ORDERED: PRED20 PO (17:54)
== END 2022-05-08 18:36 | disposition home or self-care (01) ==
LOC: ER 16:25
DX: J44.1 Chronic obstructive pulmonary disease with (acute) exacerbation (principal); Z88.8 Allergy status to other drugs, medicaments and biological substances; Z88.6 Allergy status to analgesic agent; Z88.5 Allergy status to narcotic agent; Z79.82 Long term (current) use of aspirin; Z79.899 Other long term (current) drug therapy; I25.10 Atherosclerotic heart disease of native coronary artery without angina pectoris; I50.9 Heart failure, unspecified; N18.30 Chronic kidney disease, stage 3 unspecified; Z87.891 Personal history of nicotine dependence
CPT/HCPCS: 71045; 93005; 93010; J2930

== ENCOUNTER 2022-05-23 15:51 | Emergency (ER) | payer OTHER ==
[~2022-05-23] VITALS: Ht 185.4 cm; Wt 79.4 kg
[~2022-05-23 15:51] MED LIST changes: +PRED20 PO
[2022-05-23 21:13] LABS: BASOPHILS ABSOLUTE AUTO 0.11 K/mm3 (0.00-0.23); BASOPHILS PERCENT AUTO 2 % (0-2); EOSINOPHILS ABSOLUTE AUTO 0.46 K/mm3 (0.00-0.68); EOSINOPHILS PERCENT AUTO 7 % (0-6); Hematocrit 42.4 % (37.0-53.0); Hemoglobin 12.7 g/dL (13.5-17.5); IMMATURE GRAN ABSOLUTE AUTO 0.02 K/mm3 (0.00-0.10); IMMATURE GRAN PERCENT AUTO 0 % (0-1); LYMPHOCYTES ABSOLUTE AUTO 1.97 K/mm3 (0.84-5.20); LYMPHOCYTES PERCENT AUTO 29 % (21-46); MONOCYTES PERCENT AUTO 7 % (4-13); Mean Corpuscular HGB 23.6 pg (26.0-34.0); Mean Corpuscular Volume 79 fL (80-100); NEUTROPHILS PERCENT AUTO 55 % (41-73); Platelet Count 216 K/mm3 (150-400); RDW Coefficient Variation 17.2 % (11.7-14.2); RDW Standard Deviation 48.4 fL (35.1-46.3); Red Blood Cell Count 5.38 M/mm3 (4.30-5.90); White Blood Cell Count 6.86 K/mm3 (4.00-11.30)
[2022-05-23 21:26] LABS: Albumin, Blood 3.1 g/dL (3.4-5.0); Albumin/Globulin Ratio 0.9 (0.8-1.8); Bilirubin, Total 1.9 mg/dL (0.1-1.0); Bun/Creatinine Ratio 22.4 (12.0-20.0); Calcium, Blood 8.9 mg/dL (8.5-10.1); Creatinine, Blood 1.56 mg/dL (0.60-1.20); Globulin, Blood 3.5 g/dL (2.2-4.0); Potassium, Blood 3.2 mmol/L (3.5-5.5); Total Protein, Blood 6.6 g/dL (6.4-8.2)
[2022-05-23 22:49] LABS: Source, Urine Clean Catch
[2022-05-23 22:59] LABS: Bilirubin, Urine Neg (Neg); Blood, Urine Neg (Neg); Glucose Qualitative, Urine Neg (Neg); Ketones, Urine 1+ (Neg); Leukocyte Esterase, Urine 1+ (Neg); Nitrite, Urine Neg (Neg); Protein, Urine 3+ (Neg); Urobilinogen, Urine 2+ (Normal)
[2022-05-23 23:27] LABS: Appearance, Urine Clear (Clear); Color, Urine Yellow (P-Yellow)
[2022-05-23 23:28] LABS: Amorphous Light (0-Heavy); Bacteria Few /hpf; Red Blood Cells, Urine Not Seen /hpf (0-2); Squamous Epithelial Cells Rare /hpf (Few); White Blood Cells, Urine 0-2 /hpf (0-5)
== END 2022-05-24 00:54 | disposition home or self-care (01) ==
LOC: ER 15:51
PROVIDERS: Physician Assistant; Student in an Organized Health Care Education/Training Program
DX: Z04.89 Encounter for examination and observation for other specified reasons (principal); J44.9 Chronic obstructive pulmonary disease, unspecified; I50.9 Heart failure, unspecified; I25.10 Atherosclerotic heart disease of native coronary artery without angina pectoris; N18.30 Chronic kidney disease, stage 3 unspecified; Z79.899 Other long term (current) drug therapy; Z79.01 Long term (current) use of anticoagulants; Z79.52 Long term (current) use of systemic steroids; Z88.8 Allergy status to other drugs, medicaments and biological substances; Z88.5 Allergy status to narcotic agent; Z95.1 Presence of aortocoronary bypass graft; Z87.891 Personal history of nicotine dependence
CPT/HCPCS: 36415; 70450; 80053; 81001; 85025; 93005; 93010; J7030

== ENCOUNTER 2023-06-14 12:19 | Emergency (ER) | payer OTHER ==
[~2023-06-14] VITALS: Ht 182.9 cm; Wt 70.3 kg
[2023-06-14 13:30] LABS: BASOPHILS ABSOLUTE AUTO 0.03 K/mm3 (0.00-0.23); BASOPHILS PERCENT AUTO 0 % (0-2); EOSINOPHILS ABSOLUTE AUTO 0.16 K/mm3 (0.00-0.68); EOSINOPHILS PERCENT AUTO 2 % (0-6); Hematocrit 49.9 % (37.0-53.0); Hemoglobin 16.6 g/dL (13.5-17.5); IMMATURE GRAN ABSOLUTE AUTO 0.03 K/mm3 (0.00-0.10); IMMATURE GRAN PERCENT AUTO 0 % (0-1); LYMPHOCYTES ABSOLUTE AUTO 0.51 K/mm3 (0.84-5.20); LYMPHOCYTES PERCENT AUTO 7 % (21-46); MONOCYTES ABSOLUTE AUTO 0.24 K/mm3 (0.16-1.47); MONOCYTES PERCENT AUTO 3 % (4-13); Mean Corpuscular HGB 32.7 pg (26.0-34.0); Mean Corpuscular HGB Conc 33.3 g/dL (31.5-36.5); Mean Corpuscular Volume 98 fL (80-100); Mean Platelet Volume 9.5 fL (9.1-12.4); NEUTROPHILS ABSOLUTE AUTO 6.55 K/mm3 (1.96-9.15); NEUTROPHILS PERCENT AUTO 87 % (41-73); Platelet Count 160 K/mm3 (150-400); RDW Coefficient Variation 14.9 % (11.7-14.2); RDW Standard Deviation 53.5 fL (35.1-46.3); Red Blood Cell Count 5.07 M/mm3 (4.30-5.90); White Blood Cell Count 7.52 K/mm3 (4.00-11.30)
[2023-06-14 13:31] LABS: Albumin, Blood 3.5 g/dL (3.4-5.0); Albumin/Globulin Ratio 1.1 (0.8-1.8); Bilirubin, Total 1.4 mg/dL (0.1-1.0); Calcium, Blood 8.7 mg/dL (8.5-10.1); Creatinine, Blood 1.31 mg/dL (0.60-1.20); Globulin, Blood 3.3 g/dL (2.2-4.0); Potassium, Blood 5.1 mmol/L (3.5-5.5); Total Protein, Blood 6.8 g/dL (6.4-8.2)
[2023-06-14] MEDS ORDERED: Robaxin750 MG PO ×2 (14:39→14:41)
[2023-06-14 15:29] LABS: Influenza A, PCR NEGATIVE (NEGATIVE); Influenza B, PCR NEGATIVE (NEGATIVE); Resp Syncytial Virus, PCR NEGATIVE (NEGATIVE); SARS-Cov-2 (COVID-19) PCR, MMC NEGATIVE (NEGATIVE)
[2023-06-14 15:49] VITALS: BP 150/73
== END 2023-06-14 15:50 | disposition home or self-care (01) ==
LOC: ER 12:19
PROVIDERS: Emergency Medicine; Student in an Organized Health Care Education/Training Program
DX: M62.838 Other muscle spasm (principal); R56.9 Unspecified convulsions; M79.18 Myalgia, other site; J06.9 Acute upper respiratory infection, unspecified; J44.9 Chronic obstructive pulmonary disease, unspecified; I50.9 Heart failure, unspecified; N18.30 Chronic kidney disease, stage 3 unspecified; I25.2 Old myocardial infarction; Z88.5 Allergy status to narcotic agent; Z88.8 Allergy status to other drugs, medicaments and biological substances; Z79.82 Long term (current) use of aspirin; Z79.899 Other long term (current) drug therapy; Z95.1 Presence of aortocoronary bypass graft; Z87.891 Personal history of nicotine dependence; Z20.822 Contact with and (suspected) exposure to COVID-19
CPT/HCPCS: 0241U; 80053; 85025; 96365; 96375; 99285-25; A9270; J2765; J3475

== ENCOUNTER 2023-07-16 08:10 | Day surgery (SDC) | payer OTHER ==
[~2023-07-16] VITALS: Ht 182.9 cm; Wt 70.0 kg
[2023-07-16] VITALS (10 sets, daily range): BP systolic 107–139; BP diastolic 60–72
[~2023-07-16 08:10] MED LIST changes: +AKWA Tears15 ML; +Banophen25 MG PO; +Bisoprolol Fuma10 MG PO; +DOCU100 PO; +DULOXETINE HCL60 MG PO; +HYDROCORTISO TP; +METAMUCIL POWD575 GM PO; +NITR.6SL SL; +Percocet 5-3251 EACH PO; +Robaxin750 MG PO; +Ropinirole HCl0.5 MG PO; +SOAANZ40 M1 PO; +STRIVERDI RESPIM4 G1 IH; +TRIA50 PO; +VITAMIN D350 MC3 PO
[2023-07-16] MEDS ORDERED: Nitroglycerin1 EACH TOP (09:23)
--- NOTE | 2023-07-16 13:21 | NUR ---
PT GIVEN URINAL PER REQUEST
--- NOTE | 2023-07-16 14:00 | NUR ---
10CC AIR REMOVED FROM R RADIAL TR BAND. -BLEEDING OR SWELLING.
--- NOTE | 2023-07-16 14:31 | NUR ---
PT VERBALIZED UNDERSTANDING OF WRITTEN AND VERBAL D/C INST. R WRIST TR BAND REMOVED AND CLOTH DOT DRSG PLACED. R WRIST SPLINT AND ARM SLING APPLIED. IV REMOVED. PT TO BE TAKEN OUT VIA W/C.
== END 2023-07-16 15:01 | disposition home or self-care (01) ==
LOC: MHTC 08:10
DX: T82.898A Other specified complication of vascular prosthetic devices, implants and grafts, initial encounter (principal); Y71.3 Surgical instruments, materials and cardiovascular devices (including sutures) associated with adverse incidents; I25.110 Atherosclerotic heart disease of native coronary artery with unstable angina pectoris; I25.82 Chronic total occlusion of coronary artery; I25.5 Ischemic cardiomyopathy; E78.5 Hyperlipidemia, unspecified; I73.9 Peripheral vascular disease, unspecified; I13.0 Hypertensive heart and chronic kidney disease with heart failure and stage 1 through stage 4 chronic kidney disease, or unspecified chronic kidney disease; N18.32 Chronic kidney disease, stage 3b; I50.9 Heart failure, unspecified; G47.33 Obstructive sleep apnea (adult) (pediatric); J44.9 Chronic obstructive pulmonary disease, unspecified; F43.10 Post-traumatic stress disorder, unspecified; I71.40 Abdominal aortic aneurysm, without rupture, unspecified; K21.9 Gastro-esophageal reflux disease without esophagitis; Z88.8 Allergy status to other drugs, medicaments and biological substances; Z88.5 Allergy status to narcotic agent; Z79.01 Long term (current) use of anticoagulants; Z79.82 Long term (current) use of aspirin; Z79.02 Long term (current) use of antithrombotics/antiplatelets; Z79.899 Other long term (current) drug therapy
CPT/HCPCS: 76937; 93455; 99152; 99153; C1769; C1894; J1644; J2250; J3010; J7030; J7050; Q9967

== ENCOUNTER 2024-01-06 10:47 | Day surgery (SDC) | payer OTHER ==
[~2024-01-06] VITALS: Ht 185.4 cm; Wt 70.9 kg
[~2024-01-06 10:47] MED LIST changes: +Balanced Salt Epinephrine Irrigation Solution 500 mL IR SCH; +Lidocaine HCl/Pf 1% 5 ML VIAL XX SCH; +Moxifloxacin HCL 0.5 MG/0.1 ML 0.4MLSYR LEFTEYE SCH; +NALOXONE H0.4 MG/1 M; +NS 500 ML IV ONE; +Nitroglycerin1 EACH TOP; +PANT20; +PHENYLEPHRINE\\TROPICAMIDE\\TETRACAINE OPHTHALMIC DILATING SOLN LEFTEYE PRN; +Povidone-Iodine 450 DROP/30 ML Solution LEFTEYE SCH; +RANO500T
[2024-01-06] MEDS ORDERED: CALCIUM CARBON200 M1 PO (11:24)
[2024-01-06] MEDS ORDERED: TRIDERM28.4 GM (11:25)
[2024-01-06] MEDS ORDERED: ACET500 (11:26)
[2024-01-06] MEDS ORDERED: LIDO700A20 (11:26)
[2024-01-06] MEDS ORDERED: CYMBALTA60 M1 (11:27)
[2024-01-06] MEDS ORDERED: Nitroglycerin1 EAC3 TOP (11:31)
[2024-01-06] MEDS ORDERED: STIOLTO RESPIMAT4 G2 (11:33)
[2024-01-06] MEDS ORDERED: FentaNYL Citrate 50 MCG/ML 2 ML Injection ONE (11:44)
[2024-01-06] MEDS ORDERED: NS 500 ML IV ONE (11:45)
[2024-01-06] MEDS ORDERED: Midazolam HCl 1MG / ML 2ML Vial ONE (11:47)
--- NOTE | 2024-01-06 11:49 | NUR ---
01/06/24 Shea Sofia TETRACAINE PLACED IN AT 1121 AND PLEDGET PLACED IN AT 1124, IN LEFT EYE. CALL LIGHT WITHIN REACH.
[2024-01-06] MEDS ORDERED: Tetracaine HCl 0.5% Opth Soln 15 ml LEFTEYE ONE (11:53)
[2024-01-06 12:51] VITALS: BP 136/70
== END 2024-01-06 12:45 | disposition home or self-care (01) ==
LOC: ORSCSDS 10:47
PROVIDERS: Student in an Organized Health Care Education/Training Program
PROC: 08RK3JZ Replacement of Left Lens with Synthetic Substitute, Percutaneous Approach (ICD-10-PCS; principal; 2024-01-06 12:00)
DX: H25.812 Combined forms of age-related cataract, left eye (principal); N18.30 Chronic kidney disease, stage 3 unspecified; I25.10 Atherosclerotic heart disease of native coronary artery without angina pectoris; F43.10 Post-traumatic stress disorder, unspecified; J44.9 Chronic obstructive pulmonary disease, unspecified; Z79.02 Long term (current) use of antithrombotics/antiplatelets; Z79.82 Long term (current) use of aspirin; Z79.01 Long term (current) use of anticoagulants; Z79.899 Other long term (current) drug therapy
CPT/HCPCS: J2250; J3010; J7040; V2632